=== PATIENT | male | born 1985 | race African-American/Black ===

== ENCOUNTER 2019-09-26 16:31 | Emergency (ER) | payer SELFPAY ==
[~2019-09-26] VITALS: Ht 180 cm; Wt 90.0 kg
--- NOTE | 2019-09-26 17:52 | ED Integumentary General ---
General Chief Complaint: Skin/Wound Problems Stated Complaint: BUMP ON CHIN Nursing Triage Note: THE PT IS AMBULATORY TO THE ROOM WITHOUT DIFFICULTY. NO DISTRESS IS SEEN ON ARRIVAL. LOC IS NORMAL FOR THE PT. THE PT HAS AN ABSCESS ON HIS LOWER JAW. Source: patient Exam Limitations: no limitations (SANDY BUSH MD) History of Present Illness Date Seen by Provider: Sep 26, 2019 Time Seen by Provider: 17:41 Initial Comments Here with report of infected ingrown hair to the left side of the face at the jawline. He gets these sometimes and usually he can get it to pop and it goes away. This time he couldn't get it to pop and he tried squeezing it and it didn't work. Now has grown and is somewhat painful. Denies other concerns. Timing/Duration: week, getting worse Severity: moderate Location: face Possible Cause: other (infected ingrown hair) Associated Symptoms: No fever, No rash (SANDY BUSH MD) Allergies and Home Medications Allergies Coded Allergies: No Known Drug Allergies (Unverified , 12/30/13) Home Medications Sulfamethoxazole/Trimethoprim 1 Each Tablet, 1 EACH PO BID Prescribed by: SANDY BUSH on 09/26/19 1806 Patient Home Medication List Home Medication List Reviewed: Yes (SANDY BUSH MD) Review of Systems Review of Systems Constitutional: see HPI; No chills, No fever Respiratory: no symptoms reported Cardiovascular: no symptoms reported Skin: see HPI, change in color, lesions, lumps Psychiatric/Neurological: No Symptoms Reported (SANDY BUSH MD) Past Unxfczz-Igtblw-Jwtmdv Hx Past Med/Social Hx: Reviewed Nursing Past Med/Soc Hx (SANDY BUSH MD) Patient Social History Alcohol Use: Denies Use Recreational Drug Use: Yes Drug of Choice: marijuana Smoking Status: Current Everyday Smoker Recent Foreign Travel: No Contact w/Someone Who Travel: No Recent Infectious Disease Expo: No (SANDY BUSH MD) Immunizations Up To Date Tetanus Booster (TDap): Unknown (SANDY BUSH MD) Past Medical History Surgeries: No Cardiac: No Neurological: No Reproductive Disorders: No Sexually Transmitted Disease: No HIV/AIDS: No Gastrointestinal: No Musculoskeletal: No Endocrine: No Cancer: No Psychosocial: Yes Bipolar Integumentary: No Blood Disorders: No (SANDY BUSH MD) Physical Exam Vital Signs Vital Signs - First Documented 09/26/19 16:41 Temp 37.1 Pulse 112 Resp 16 (TEREZA TRAN) Vital Signs Capillary Refill : Less Than 3 Seconds (SANDY BUSH MD) General Appearance: WD/WN, no apparent distress Cardiovascular: regular rate, rhythm, no murmur Respiratory: lungs clear, normal breath sounds Neurologic/Psychiatric: alert, oriented x 3 Skin: warm/dry Skin Problem Location: face (left lower jawline anterior) Skin Problem Character: abscess (to a 2 cm with fluctuance and some surrounding induration), erythema (SANDY BUSH MD) Procedures/Interventions I&D : Site: left jaw Blade Size: 11 I & D Procedure: betadine prep, sterile drapes applied, sterile dressing applied, gauze wick placed (one quarter-inch plain packing used to place a small wick in the incision site) Progress Thick, off-white drainage noted from the wound (TEREZA TRAN) Progress/Results/Core Measures Results/Orders My Orders Orders - TEREZA TRAN Sulfamethoxazole/Trimet Ds Tab (Bactrim (09/26/19 18:00) Lidocaine/Epi 2% 1:100,000 (Xylocaine/Ep (09/26/19 18:00) (TEREZA TRAN) Medications Given in ED Current Medications Medications Dose Ordered Sig/Kolby Route Start Time Stop Time Status Last Admin Dose Admin Lidocaine/ Epinephrine 20 ml ONCE ONCE INJ 09/26/19 18:00 09/26/19 18:01 DC 09/26/19 18:12 20 ML Trimethoprim/ Sulfamethoxazole 1 ea ONCE ONCE PO 09/26/19 18:00 09/26/19 18:01 DC 09/26/19 18:12 1 EA (TEREZA TRAN) Vital Signs/I&O 09/26/19 16:41 Temp 37.1 Pulse 112 Resp 16 B/P (MAP) (TEREZA TRAN) Progress Progress Note : Progress Note Seen and evaluated. Requires I&D. I&D to be performed by ATA Gutierrez. Discharged home after with return precautions. Patient and family verbalize understanding instructions and agreement with plan. Bactrim DS one tab by mouth ordered and given. (SANDY BUSH MD) Departure Impression Primary Impression: Facial abscess Disposition: HOME, SELF-CARE Condition: Improved Departure-Patient Inst. Decision time for Depature: 18:05 (SANDY BUSH MD) Referrals: NO,LOCAL PHYSICIAN (PCP/Family) Primary Care Physician Patient Instructions: Abscess Incision and Drainage (DC) Add. Discharge Instructions: All discharge instructions reviewed with patient and/or family. Voiced understanding. Medications as instructed. Tylenol extra strength fggs-glz-[id number] as directed for pain. Ibuprofen 800 mg by mouth every 8 hours as needed for pain. Tomorrow morning you may remove the wick and shower with antibacterial soap. Cover with a Band-Aid or a small piece of gauze. Follow-up with your family practitioner for recheck as outpatient this week. Call Saturday morning for appointment time. You may use ice packs or warm compresses as needed for pain and swelling. Return to the emergency department for worsened symptoms, redness, fever, drainage, swelling, or any other concerns. Scripts Sulfamethoxazole/Trimethoprim (Bactrim Ds Tablet) 1 Each Tablet 1 EACH PO BID, #14 TAB 0 Refills Prov: SANDY BUSH MD 09/26/19 SANDY BUSH MD Sep 26, 2019 17:52 TEREZA TRAN Sep 26, 2019 18:51
[2019-09-26] MEDS ORDERED: TRIM/SULFAMETH 160/800 (SEPTRA DS) TAB PO ONE (18:00)
[2019-09-26] MEDS ORDERED: LIDOCAINE/EPI 2% 1:100,00 (XYLOCAINE) 20 ML VIAL INJ ONE (18:00)
[2019-09-26] MEDS ORDERED: SULF1TAB35 PO (18:06)
[2019-09-26 19:00] VITALS: BP 133/86
--- OUTSIDE RECORDS SUMMARY | 2019-09-30 02:35 | XMS REPORT | Continuity of Care Document ---
Author Organization Unknown Address Unknown Phone Unavailable Allergies Active Description Code Type Severity Reaction Onset Reported/Identified Relationship to Patient Clinical Status Yes No Known Drug Allergies [id number] Drug Allergy Unknown N/A 12/30/2013 Medications There is no data. Problems There is no data. Procedures There is no data. Results Test Result Range Gram stain microscopy - 09/26/19 18:53 Gram stain microscopy NO BACTERIA SEEN NRG Encounters ACCT No. Visit Date/Time Discharge Status Pt. Type Provider Facility Loc./Unit Complaint [id number] 09/26/2019 16:32:00 020 19:00:00 DIS Emergency TEREZA TOLENTINO [facility] ER BUMP ON CHIN [id number] 12/30/2013 10:36:00 014 11:16:00 DIS Emergency
== END 2019-09-26 19:00 | disposition home or self-care (01) ==
LOC: EDUNIT# 16:31 → ER 16:32
DX: L02.01 Cutaneous abscess of face (principal); F17.200 Nicotine dependence, unspecified, uncomplicated
CPT/HCPCS: 87070; 87205; 99284

== ENCOUNTER 2020-02-19 03:00 | Emergency (ER) | payer SELFPAY ==
[~2020-02-19] VITALS: Ht 170 cm; Wt 65.7 kg
[~2020-02-19 03:00] MED LIST: SULF1TAB35 PO
--- OUTSIDE RECORDS SUMMARY | 2020-02-19 03:06 | XMS REPORT | Continuity of Care Document ---
Author Organization Unknown Address Unknown Phone Unavailable Allergies Active Description Code Type Severity Reaction Onset Reported/Identified Relationship to Patient Clinical Status Yes No Known Drug Allergies [id number] Drug Allergy Unknown N/A 12/30/2013 Medications There is no data. Problems There is no data. Procedures There is no data. Results Test Result Range Gram stain microscopy - 09/26/19 18:53 Gram stain microscopy NO BACTERIA SEEN NRG Bacteria identification in wound by cult ure - 09/26/19 18:53 Bacteria identification in wound by culture GRAM P OS M NRG FREE TEXT EXTERNAL NO BETA STREP, STAPH AUREUS, OR NRG QUANTITY OF GROWTH Rare NRG FREE TEXT ENTRY 2 PSEUDOMONAS ISOLATED NRG FREE TEXT ENTRY 3 NO FURTHER TESTING NR G Encounters ACCT No. Visit Date/Time Discharge Status Pt. Type Provider Facility Loc./Unit Complaint [id number] 09/26/2019 16:32:00 020 19:00:00 DIS Emergency TEREZA TOLENTINO [facility] ER BUMP ON CHIN [id number] 12/30/2013 10:36:00 014 11:16:00 DIS Emergency
[2020-02-19 03:17] LABS: BASOPHILS % (AUTO) 0 % (0-10); EOSINOPHILS # (AUTO) 0.2 10^3/uL (0.0-0.3); EOSINOPHILS % (AUTO) 2 % (0-10); HEMATOCRIT 46 % (40-54); LYMPHOCYTES # (AUTO) 2.3 X 10^3 (1.0-4.0); LYMPHOCYTES % (AUTO) 17 % (12-44); MEAN CORPUSCULAR HEMOGLOBIN 33 PG (25-34); MEAN CORPUSCULAR HGB CONC 35 G/DL (32-36); MEAN CORPUSCULAR VOLUME 96 FL (80-99); MEAN PLATELET VOLUME 8.7 FL (7.4-10.4); MONOCYTES # (AUTO) 0.8 X 10^3 (0.0-1.0); MONOCYTES % (AUTO) 6 % (0-12); NEUTROPHILS # (AUTO) 10.1 X 10^3 (1.8-7.8); NEUTROPHILS % (AUTO) 76 % (42-75); PLATELET COUNT 368 10^3/uL (130-400); WHITE BLOOD COUNT 13.4 10^3/uL (4.3-11.0)
[2020-02-19 03:21] LABS: CLARITY,URINE CLEAR; COLOR,URINE DARK YELLOW; GLUCOSE, URINE (UA) NEGATIVE (NEGATIVE); KETONES,URINE TRACE (NEGATIVE); LEUKOCYTE ESTERASE ,URINE NEGATIVE (NEGATIVE); NITRITE,URINE NEGATIVE (NEGATIVE); PH,URINE 5.5 (5-9); PROTEIN,URINE 1+ (NEGATIVE)
[2020-02-19 03:28] LABS: ALBUMIN 4.6 GM/DL (3.2-4.5); CHLORIDE 103 MMOL/L (98-107); POTASSIUM 3.8 MMOL/L (3.6-5.0); SODIUM 140 MMOL/L (135-145)
[2020-02-19 03:30] LABS: CALCIUM 9.6 MG/DL (8.5-10.1)
[2020-02-19 03:31] LABS: GLUCOSE 129 MG/DL (70-105); TOTAL PROTEIN 7.8 GM/DL (6.4-8.2)
[2020-02-19 03:32] LABS: BACTERIA,URINE MODERATE /HPF; CARBON DIOXIDE 25 MMOL/L (21-32); RBC,URINE RARE /HPF; SQUAMOUS EPITHELIAL CELL,UR RARE /HPF; WBC,URINE 0-2 /HPF
[2020-02-19 03:33] LABS: BILIRUBIN,TOTAL 0.7 MG/DL (0.1-1.0); BILIRUBIN,URINE NEGATIVE (NEGATIVE)
[2020-02-19 03:34] LABS: AMPHETAMINE SCREEN, URINE NEGATIVE (NEGATIVE); BARBITURATE SCREEN URINE NEGATIVE (NEGATIVE); BENZODIAZEPINES SCREEN URINE NEGATIVE (NEGATIVE); CANNABINOID SCREEN, URINE POSITIVE (NEGATIVE); COCAINE SCREEN URINE POSITIVE (NEGATIVE); METHADONE STAT NEGATIVE (NEGATIVE); METHAMPHETAMINE SCREEN URINE S POSITIVE (NEGATIVE); OPIATE SCREEN URINE NEGATIVE (NEGATIVE); OXYCODONE STAT NEGATIVE (NEGATIVE); PROPOXYPHENE STAT NEGATIVE (NEGATIVE); TRICYCLIC ANTIDEPRESSANTS SCRE NEGATIVE (NEGATIVE)
[2020-02-19 03:35] LABS: ALKALINE PHOSPHATASE 71 U/L (40-136); CREATININE SERUM 1.05 MG/DL (0.60-1.30); GFR ESTIMATED > 60
[2020-02-19 03:36] LABS: ACETAMINOPHEN 34 UG/ML (10-30); BUN/CREATININE RATIO 6
[2020-02-19 03:37] LABS: SALICYLATE < 5.0 MG/DL (5.0-20.0)
[2020-02-19 03:38] LABS: ALANINE AMINOTRANSFERASE 15 U/L (0-55)
[2020-02-19] MEDS ORDERED: lamoTRIgine 25 MG (LaMICtal) TAB PO ONE (04:30)
[2020-02-19] MEDS ORDERED: LAMO25TA75 PO (04:46)
--- NOTE | 2020-02-19 04:46 | ED Psychosocial ---
General Chief Complaint: Suicidal Ideation Risk Stated Complaint: SUICIDAL Nursing Triage Note: pt presents to the ED with thoughts of SI. pt states he recently lost his job and is having SI thoughts. pt recently relocated to the area and has not established mental health care. pt has hx of bipolar. plan to comit suicide was to overdose on cocain and tylenol Source: patient, old records Exam Limitations: no limitations History of Present Illness Date Seen by Provider: Feb 19, 2020 Time Seen by Provider: 03:02 Initial Comments This 34-year-old young man presents to the emergency room with complaints of intermittent suicidal thoughts. He recently lost his job and moved to the [facility]. He had been receiving behavioral health services in [place], [place] for bipolar disorder and schizophrenia. He was previously on Lamictal but has been out of his medications for a couple of months. He has been using multiple illicit substances extensively. He reports snorting a large amount of cocaine yesterday. He reports taking 7 or 8 Tylenol within the past 24 hours but no prescription medications. His prior behavioral health provider was Merry Tovar in [place] and she prescribed his medication. He needs to establish with a behavioral health services here. He reports battling with mental health issues since he was 13 and he has been admitted to inpatient facilities multiple times. He states he really needs someone to talk to but does not specifically feel suicidal at this moment. He reports hallucinations yesterday but not today. Allergies and Home Medications Allergies Coded Allergies: No Known Drug Allergies (Unverified , 12/30/13) Home Medications Lamotrigine 25 Mg Tablet, 25 MG PO DAILY Prescribed by: MAKSIM DIAMOND on 02/19/20 3286 Sulfamethoxazole/Trimethoprim 1 Each Tablet, 1 EACH PO BID Prescribed by: SANDY BUSH on 09/26/19 0605 Patient Home Medication List Home Medication List Reviewed: Yes Review of Systems Constitutional: no symptoms reported EENTM: no symptoms reported Respiratory: no symptoms reported Cardiovascular: no symptoms reported Gastrointestinal: no symptoms reported Genitourinary: no symptoms reported Musculoskeletal: no symptoms reported Skin: no symptoms reported Psychiatric/Neurological: See HPI Past Scnslac-Bpjygy-Hvtbqb Hx Past Med/Social Hx: Reviewed Nursing Past Med/Soc Hx Patient Social History Alcohol Use: Occasionally Uses Number of Drinks Today: 0 Recreational Drug Use: Yes (cocaine, marijuana) Drug of Choice: cocaine and marijuana Smoking Status: Current Everyday Smoker Type Used: Cigarettes 2nd Hand Smoke Exposure: Yes Recent Infectious Disease Expo: No Recent Hopitalizations: No Physical Abuse: No Sexual Abuse: No Mistreated: No Fear: No Immunizations Up To Date Tetanus Booster (TDap): Unknown Seasonal Allergies Seasonal Allergies: No Past Medical History Surgeries: Yes Abdominal Respiratory: No Cardiac: No Neurological: No Reproductive Disorders: No Sexually Transmitted Disease: No HIV/AIDS: No Genitourinary: No Gastrointestinal: No Musculoskeletal: No Endocrine: No HEENT: No Cancer: No Psychosocial: Yes Bipolar, Schizophrenia Integumentary: No Blood Disorders: No Adverse Reaction/Blood Tranf: No Physical Exam Vital Signs - First Documented 02/19/20 02/19/20 03:00 04:53 Temp 36.7 Pulse 90 Resp 18 B/P (MAP) 136/101 (113) Pulse Ox 98 O2 Delivery Room Air Capillary Refill : Less Than 3 Seconds Height, Weight, BMI Height: 5'6" Weight: 145lbs. oz. 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, no motor/sensory deficits, alert, normal mood/affect, oriented x 3 Appearance/Memory: appropriate appearance, appropriate insight Behavior/Eye Contact: cooperative, good eye contact, normal speech Thoughts/Hallucinations: no apparent hallucination Skin: normal color, warm/dry Progress/Results/Core Measures Results/Orders Lab Results Laboratory Tests Test 02/19/20 03:05 Range/Units White Blood Count 13.4 H 4.3-11.0 10^3/uL Red Blood Count 4.79 4.35-5.85 10^6/uL Hemoglobin 16.0 13.3-17.7 G/DL Hematocrit 46 40-54 % Mean Corpuscular Volume 96 80-99 FL Mean Corpuscular Hemoglobin 33 25-34 PG Mean Corpuscular Hemoglobin Concent 35 32-36 G/DL Red Cell Distribution Width 13.0 10.0-14.5 % Platelet Count 368 130-400 10^3/uL Mean Platelet Volume 8.7 7.4-10.4 FL Neutrophils (%) (Auto) 76 H 42-75 % Lymphocytes (%) (Auto) 17 12-44 % Monocytes (%) (Auto) 6 0-12 % Eosinophils (%) (Auto) 2 0-10 % Basophils (%) (Auto) 0 0-10 % Neutrophils # (Auto) 10.1 H 1.8-7.8 X 10^3 Lymphocytes # (Auto) 2.3 1.0-4.0 X 10^3 Monocytes # (Auto) 0.8 0.0-1.0 X 10^3 Eosinophils # (Auto) 0.2 0.0-0.3 10^3/uL Basophils # (Auto) 0.0 0.0-0.1 10^3/uL Urine Color DARK YELLOW Urine Clarity CLEAR Urine pH 5.5 5-9 Urine Specific [place] 1.025 H 1.016-1.022 Urine Protein 1+ H NEGATIVE Urine Glucose (UA) NEGATIVE NEGATIVE Urine Ketones TRACE H NEGATIVE Urine Nitrite NEGATIVE NEGATIVE Urine Bilirubin NEGATIVE NEGATIVE Urine Urobilinogen 1.0 < = 1.0 MG/DL Urine Leukocyte Esterase NEGATIVE NEGATIVE Urine RBC (Auto) TRACE-I NEGATIVE Urine RBC RARE /HPF Urine WBC 0-2 /HPF Urine Squamous Epithelial Cells RARE /HPF Urine Crystals NONE /LPF Urine Bacteria MODERATE H /HPF Urine Casts NONE /LPF Urine Mucus MODERATE H /LPF Urine Culture Indicated YES Sodium Level 140 135-145 MMOL/L Potassium Level 3.8 3.6-5.0 MMOL/L Chloride Level 103 98-107 MMOL/L Carbon Dioxide Level 25 21-32 MMOL/L Anion Gap 12 5-14 MMOL/L Blood Urea Nitrogen 6 L 7-18 MG/DL Creatinine 1.05 0.60-1.30 MG/DL Estimat Glomerular Filtration Rate > 60 BUN/Creatinine Ratio 6 Glucose Level 129 H 70-105 MG/DL Calcium Level 9.6 8.5-10.1 MG/DL Corrected Calcium 8.5-10.1 MG/DL Total Bilirubin 0.7 0.1-1.0 MG/DL Aspartate Amino Transf (AST/SGOT) 19 5-34 U/L Alanine Aminotransferase (ALT/SGPT) 15 0-55 U/L Alkaline Phosphatase 71 40-136 U/L Total Protein 7.8 6.4-8.2 GM/DL Albumin 4.6 H 3.2-4.5 GM/DL TSH [place] Testing 1.07 0.35-4.94 UIU/ML Salicylates Level < 5.0 L 5.0-20.0 MG/DL Urine Opiates Screen NEGATIVE NEGATIVE Urine Oxycodone Screen NEGATIVE NEGATIVE Urine Methadone Screen NEGATIVE NEGATIVE Urine Propoxyphene Screen NEGATIVE NEGATIVE Acetaminophen Level 34 H 10-30 UG/ML Urine Barbiturates Screen NEGATIVE NEGATIVE Ur Tricyclic Antidepressants Screen NEGATIVE NEGATIVE Urine Phencyclidine Screen POSITIVE H NEGATIVE Urine Amphetamines Screen NEGATIVE NEGATIVE Urine Methamphetamines Screen POSITIVE H NEGATIVE Urine Benzodiazepines Screen NEGATIVE NEGATIVE Urine Cocaine Screen POSITIVE H NEGATIVE Urine Cannabinoids Screen POSITIVE H NEGATIVE Serum Alcohol < 10 <10 MG/DL My Orders Orders - MAKSIM PAUL MD Ua Culture If Indicated (02/19/20 03:07) Cbc With Automated Diff (02/19/20 03:07) Comprehensive Metabolic Panel (02/19/20 03:07) Alcohol (02/19/20 03:07) Drug Screen Stat (Urine) (02/19/20 03:07) Acetaminophen (02/19/20 03:07) Salicylate (02/19/20 03:07) Ekg Tracing (02/19/20 03:07) Ed Iv/Invasive Line Start (02/19/20 03:07) Thyroid Analyzer (02/19/20 03:07) Monitor-Rhythm Ecg Trace Only (02/19/20 03:07) Bh Status Checks/Observation Q15M (02/19/20 03:07) Ed Iv/Invasive Line Start (02/19/20 03:07) Urine Culture (02/19/20 03:05) Lamotrigine Tablet (Lamictal Tablet) (02/19/20 04:30) Vital Signs/I&O 02/19/20 02/19/20 03:00 04:53 Temp 36.7 36.9 Pulse 90 101 Resp 18 20 B/P (MAP) 136/101 (113) 139/101 Pulse Ox 98 O2 Delivery Room Air Room Air Blood Pressure Mean: 113 Progress Progress Note : Progress Note Labs were reviewed. Vital signs are stable. Patient verbally contracts for safety at this time and commits to calling the hotline or emergency services if suicidal thoughts return. Case was reviewed with the on-call service for [facility] who will refer him for intake promptly in the morning. Patient was given a dose of Lamictal in the ER and a two-week prescription for low-dose Lamictal to get him started. Patient reports having a safe place to stay tonight. He departed for home via taxi. Departure Impression Primary Impression: Suicidal ideation Additional Impressions: Schizophrenia Qualified Codes: F20.9 - Schizophrenia, unspecified Polysubstance abuse Disposition: HOME, SELF-CARE Condition: Improved Departure-Patient Inst. Decision time for Depature: 04:30 Referrals: NO,LOCAL PHYSICIAN (PCP/Family) Primary Care Physician Patient Instructions: OUTPT MENTAL HEALTH SERVICES, Schizophrenia, Polysubstance Abuse, Suicide Prevention Add. Discharge Instructions: You should receive a call from [facility] later this morning. If you do not hear from them by noon call the SAVE Line at [phone] ([phone]). You may also call the SAVE Line if you have escalating symptoms in the meantime. Alternatively you may call 911 or return to the emergency room. Start Lamictal as prescribed. Follow-up with a primary care medical provider soon as possible. Avoid use of illicit substances such as marijuana, cocaine, methamphetamines, etc. as this may worsen symptoms of schizophrenia. All discharge instructions reviewed with patient and/or family. Voiced understan armando. Scripts Lamotrigine (Lamictal) 25 Mg Tablet 25 MG PO DAILY, #14 TAB Prov: MAKSIM PAUL MD 02/19/20 MAKSIM PAUL MD Feb 19, 2020 04:46
[2020-02-19 04:53] VITALS: BP 139/101
== END 2020-02-19 04:54 | disposition home or self-care (01) ==
LOC: EDUNIT# 03:00 → ER 03:02
DX: R45.851 Suicidal ideations (principal); F20.9 Schizophrenia, unspecified; F14.10 Cocaine abuse, uncomplicated; F12.10 Cannabis abuse, uncomplicated; F31.9 Bipolar disorder, unspecified; F17.210 Nicotine dependence, cigarettes, uncomplicated; Z91.14 Patient's other noncompliance with medication regimen
CPT/HCPCS: 80053; 80306; 81000; 84443; 85025; 87088; 93005; 99284; G0480 ×3; 36415; 80320; 80329

== ENCOUNTER 2020-07-02 06:01 | Emergency (ER) | payer SELFPAY ==
[~2020-07-02] VITALS: Ht 168 cm; Wt 61.4 kg
[~2020-07-02 06:01] MED LIST changes: +LAMO25TA75 PO
[2020-07-02 06:05] VITALS: BP 151/117
--- NOTE | 2020-07-02 06:05 | NUR ---
pt refused covid/flu swabs.
--- NOTE | 2020-07-02 06:23 | ED Cough/URI ---
General Chief Complaint: Cough/Cold/Flu Symptoms Stated Complaint: DEMPSEY,COUGH Source: patient, EMS Exam Limitations: no limitations History of Present Illness Date Seen by Provider: Jul 02, 2020 Time Seen by Provider: 06:05 Initial Comments Patient presents to the ER by EMS from home with chief complaint he has 2 weeks of headache cough runny nose congestion and sometimes some flecks of blood when he blows his nose. He has not had any actual epistaxis. He is having a little pressure on both ears but no pain. Some pain in his frontal sinuses bilaterally in his right maxillary sinus. He has not seen anybody for it. He does usually take Lamictal for his bipolar and schizoaffective disorder but he says he been o ut for a while. He says his primary care doctor is in [facility]. He smokes about a pack cigarettes a day denies any fevers source known sick contacts. He denies any testing for flu or Covid. Allergies and Home Medications Allergies Coded Allergies: No Known Drug Allergies (Unverified , 12/30/13) Home Medications Lamotrigine 25 Mg Tablet, 25 MG PO DAILY Prescribed by: MAKSIM DIAMOND on 02/19/20 0446 Sulfamethoxazole/Trimethoprim 1 Each Tablet, 1 EACH PO BID Prescribed by: SANDY BUSH on 09/26/19 1806 Patient Home Medication List Home Medication List Reviewed: Yes Review of Systems Review of Systems Constitutional: No chills, No diaphoresis, No fever; malaise EENTM: No ear discharge, No ear pain Respiratory: cough; No phlegm, No short of breath Cardiovascular: No edema, No Hx of Intervention, No palpitations Gastrointestinal: No abdominal pain, No nausea, No vomiting Genitourinary: No discharge, No dysuria Musculoskeletal: No back pain, No joint pain All Other Systems Reviewed Negative Unless Noted: Yes Past Pcpwxig-Acgeqx-Citldy Hx Patient Social History Alcohol Use: Occasionally Uses Recreational Drug Use: Yes Drug of Choice: cocaine and marijuana Smoking Status: Current Everyday Smoker Type Used: Cigarettes 2nd Hand Smoke Exposure: Yes Recent Hopitalizations: No Immunizations Up To Date Tetanus Booster (TDap): Unknown Seasonal Allergies Seasonal Allergies: No Past Medical History Surgeries: Yes Abdominal Respiratory: No Cardiac: No Neurological: No Reproductive Disorders: No Sexually Transmitted Disease: No HIV/AIDS: No Genitourinary: No Gastrointestinal: No Musculoskeletal: No Endocrine: No HEENT: No Cancer: No Psychosocial: Yes Bipolar, Schizophrenia Integumentary: No Blood Disorders: No Adverse Reaction/Blood Tranf: No Physical Exam Vital Signs - First Documented 07/02/20 06:05 O2 Delivery Room Air Capillary Refill : Height: 5'6" Weight: 145lbs. oz. 65.546874is; 22.00 BMI Method:Stated General Appearance: WD/WN, mild distress Eyes: Bilateral Eye Normal Inspection, Bilateral Eye PERRL, Bilateral Eye EOMI HEENT: PERRL/EOMI, pharynx normal, TM abnormal (R) (Moderately injected and opaque nonbulging), TM abnormal (L) (Moderately injected and opaque.), pharyngeal erythema, other (Clear rhinorrhea and tenderness over the right maxillary and bilateral frontal sinuses) Neck: full range of motion, supple, normal inspection Respiratory: lungs clear, normal breath sounds, no respiratory distress, no accessory muscle use Cardiovascular: normal peripheral pulses, regular rate, rhythm Neurologic/Psychiatric: alert, normal mood/affect, oriented x 3 Skin: normal color, warm/dry Progress/Results/Core Measures Suspected Sepsis SIRS Temperature: Pulse: Respiratory Rate: Blood Pressure / Mean: Results/Orders Vital Signs/I&O 07/02/20 06:05 O2 Delivery Room Air Capillary Refill : Progress Note : Time: 06:20 Progress Note Suspect he has a viral URI and possibly the start of a bronchitis with an occasional cough versus postnasal drip. His lungs are clear and his vital signs are aseptic. We did offer to do Covid and influenza swabs. He declined influenza swab. He was unable to completely participate with a Covid swab. Since his been going on for over 2 weeks it would be very reasonable to put him on Augmentin for 10 days and give him some cough medicine. We also recommended several decongestants that would help with his headache and nasal symptoms. Departure Impression Primary Impression: Upper respiratory infection Qualified Codes: J06.9 - Acute upper respiratory infection, unspecified Additional Impressions: Cough Sinusitis, acute maxillary Qualified Codes: J01.00 - Acute maxillary sinusitis, unspecified Disposition: 01 HOME, SELF-CARE Condition: Stable Departure-Patient Inst. Decision time for Depature: 06:20 Referrals: NO,LOCAL PHYSICIAN (PCP/Family) Primary Care Physician Patient Instructions: Sinusitis in Adults, Cough, Runny Nose, and the Common Cold (DC) Add. Discharge Instructions: Stay quarantined at home, wash your hands and wear a mask until you are 72 hours symptoms free. Use Tylenol 1000 mg every 8 hours as necessary for headache. Ibuprofen 800 mg every 8 hours as necessary for headache, body aches and fever. Drink lots of fluids. Tessalon Perles 1 capsule every 6 hours as necessary for cough. Augmentin 1 tablet twice a day with food for the next 10 days. Expect improvement over the next 3 to 5 days. If you are not seeing improvement in symptoms you can follow-up with an urgent care. If you are having difficulty breathing or worsening other symptoms you may return to the ER. Use a decongestant for your nose such as chlorpheniramine 1 tablet every 4 hours as necessary or Sudafed All discharge instructions reviewed with patient and/or family. Voiced understanding. Scripts Benzonatate (Tessalon Perle) 100 Mg Capsule 100 MG PO Q6H PRN for COUGH, #30 CAP 0 Refills Prov: KEM ONEIL 07/02/20 Amoxicillin/Potassium Clav (Augmentin 875-125 Tablet) 1 Each Tablet 1 EACH PO BID for 10 Days, #20 TAB 0 Refills Prov: KEM ONEIL 07/02/20 KEM ONEIL Jul 02, 2020 06:23
[2020-07-02] MEDS ORDERED: BENZ-13 PO (06:26)
[2020-07-02] MEDS ORDERED: AMOX-358 PO (06:26)
== END 2020-07-02 06:28 | disposition home or self-care (01) ==
LOC: EDUNIT# 06:01 → ER 06:03
DX: J06.9 Acute upper respiratory infection, unspecified (principal); R05 Cough; J01.00 Acute maxillary sinusitis, unspecified; F31.9 Bipolar disorder, unspecified; F17.210 Nicotine dependence, cigarettes, uncomplicated
CPT/HCPCS: 99283

== ENCOUNTER 2021-04-14 15:21 | Emergency (ER) | payer SELFPAY ==
[~2021-04-14] VITALS: Ht 175.2 cm; Wt 65.0 kg
[~2021-04-14 15:21] MED LIST changes: +AMOX-358 PO; +BENZ-13 PO; -SULF1TAB35 PO; +SULF1TAB38 PO
[2021-04-14] MEDS ORDERED: LORazepam INJ 2 MG/ML (ATIVAN) VIAL IVP ONE (15:45)
[2021-04-14 15:47] LABS: BASOPHILS % (AUTO) 0 % (0-10); EOSINOPHILS # (AUTO) 0.2 10^3/uL (0.0-0.3); EOSINOPHILS % (AUTO) 2 % (0-10); HEMATOCRIT 45 % (40-54); HEMOGLOBIN 15.1 g/dL (13.3-17.7); LYMPHOCYTES # (AUTO) 3.7 X 10^3 (1.0-4.0); LYMPHOCYTES % (AUTO) 41 % (12-44); MEAN CORPUSCULAR HEMOGLOBIN 33 pg (25-34); MEAN CORPUSCULAR HGB CONC 33 g/dL (32-36); MEAN CORPUSCULAR VOLUME 99 fL (80-99); MEAN PLATELET VOLUME 8.8 fL (9.0-12.2); MONOCYTES % (AUTO) 11 % (0-12); NEUTROPHILS % (AUTO) 45 % (42-75); PLATELET COUNT 354 10^3/uL (130-400)
[2021-04-14 15:51] VITALS: BP_SYST 102; BP_SYST 105; BP_SYST 91; BP_DIAS 57; BP_DIAS 65; BP_DIAS 72
[2021-04-14 15:52] LABS: POTASSIUM 4.3 MMOL/L (3.6-5.0)
[2021-04-14 15:53] LABS: CALCIUM 9.8 MG/DL (8.5-10.1)
[2021-04-14 15:57] LABS: CREATININE SERUM 1.47 MG/DL (0.60-1.30)
[2021-04-14 16:00] LABS: MAGNESIUM 2.2 MG/DL (1.6-2.4)
[2021-04-14] MEDS ORDERED: LACTATED RINGERS 1,000 ML IV ONE (16:00)
--- NOTE | 2021-04-14 16:00 | ED Syncope ---
General Chief Complaint: Dizziness/Syncope Stated Complaint: SEIZURE/SYNCOPE/HIT BACK OF HEAD Nursing Triage Note: Pt arrival to ER via wheelchair with complaint of Syncope x2 today, Chest Pain x20 minutes. [employer] patient had syncopal episode in parking lot of [facility]. states that he fell striking back of head on parking lot. She states that he quickly came to, and was able to get into car and come to ER. Once inside waiting area of hosptial, patient had witnessed syncopal episode by staff. Pt was completely unresponsive for about 15 seconds. No periods of apnea, pulselessness. Pt awakens and immediately is alert and oriented x4. Pt admits to cocaine use all day yesterday, and states that he uses it very regularly. Pt also complains of neck pain since fall, so c-collar is applied. Pain rated at a 8/10. Source of Information: Patient Exam Limitations: No Limitations History of Present Illness Date Seen by Provider: Apr 14, 2021 Time Seen by Provider: 15:25 Initial Comments 36-year-old male with past medical history of schizophrenia and bipolar disorder coming in due to an episode of syncope. The patient states he was snorting cocaine most of yesterday. He was at [facility] just prior to arrival, felt lightheaded, asked to sit down, and apparently had a syncopal episode hitting the back of his head. Was then driving here and had another syncopal episode in the parking lot witnessed by our staff. No seizure-like activity and was not postictal afterwards per staff. Afterwards came to, acting normally, ambulating. Has mild posterior head and neck pain. Denies any weakness or numbness. Says he is having some chest pain that started after the syncopal episode at [facility]. No pain prior, no palpitations. He has had a syncopal episode a couple years ago, and at that time was not using cocaine. Denies any family history of early cardiac . Is otherwise denying any other acute complaints including shortness of breath, fever, nausea, vomiting, vision changes, weakness, numbness, abdominal pain, diarrhea, or any other concerns. Allergies and Home Medications Allergies Coded Allergies: No Known Drug Allergies (Unverified , 12/30/13) Patient Home Medication List Home Medication List Reviewed: Yes Amoxicillin/Potassium Clav (Augmentin 875-125 Tablet) 1 Each Tablet, 1 EACH PO BID Prescribed by: KEM ONEIL on 07/02/20 06 Benzonatate (Tessalon Perle) 100 Mg Capsule, 100 MG PO Q6H PRN for COUGH Prescribed by: EKM ONEIL on 07/02/20625 Lamotrigine (Lamictal) 25 Mg Tablet, 25 MG PO DAILY Prescribed by: MAKSIM DIAMOND on 02/19/20 0446 Sulfamethoxazole/Trimethoprim (Bactrim Ds Tablet) 1 Each Tablet, 1 EACH PO BID Prescribed by: SANDY BUSH on 09/26/19 180 Review of Systems Constitutional: No fever EENTM: No hearing loss, No blurred vision, No double vision Respiratory: No cough, No short of breath Cardiovascular: chest pain; No edema, No palpitations; syncope Gastrointestinal: No abdominal pain, No diarrhea, No nausea, No vomiting Genitourinary: No dysuria, No frequency Musculoskeletal: No back pain, No joint pain Skin: No rash Psychiatric/Neurological: No Symptoms Reported All Other Systems Reviewed Negative Unless Noted: Yes Past Afqdlav-Abhcjj-Bubdgt Hx Patient Social History Tobacco Use?: Yes Tobacco type used: Cigarettes Smoking Status: Current Everyday Smoker Use of E-Cig and/or Vaping dev: No Substance use?: Yes Substance type: Other Additional substance use comme: Cocaine Multiple times a week Substance frequency: Couple times a week Alcohol Use?: Yes Alcohol type: Hard Liquor Alcohol Frequency: Rarely Pt feels they are or have been: No Immunizations Up To Date Tetanus Booster (TDap): Unknown Influenza Vaccine Up-to-Date: No; Not Current Seasonal Allergies Seasonal Allergies: No Past Medical History Surgeries: Yes Abdominal Respiratory: No Cardiac: No Neurological: No Reproductive Disorders: No Sexually Transmitted Disease: No HIV/AIDS: No Genitourinary: No Gastrointestinal: No Musculoskeletal: No Endocrine: No HEENT: No Cancer: No Psychosocial: Yes Bipolar, Schizophrenia Integumentary: No Blood Disorders: No Adverse Reaction/Blood Tranf: No Physical Exam Vital Signs Vital Signs - First Documented 04/14/21 15:21 Temp 36.7 Pulse 75 Resp 16 B/P (MAP) 92/62 (72) Pulse Ox 100 O2 Delivery Room Air Capillary Refill : Less Than 3 Seconds Height, Weight, BMI Height: 5'6" Weight: 145lbs. oz. 65.805879fn; 21.00 BMI Method:Stated General Appearance: No Apparent Distress, WD/WN HEENT: PERRL/EOMI, TMs Normal, Normal ENT Inspection, Pharynx Normal Neck: Full Range of Motion, Normal Inspection, Supple, Other (tender lower cervical spine) Cardiovascular: Regular Rate, Rhythm, No Edema, No Murmur, Normal Peripheral Pulses Respiratory: Chest Non Tender, Lungs Clear, Normal Breath Sounds, No Accessory Muscle Use, No Respiratory Distress Gastrointestinal: Normal Bowel Sounds, Non Tender, Soft; No Distended, No Guarding Back: Normal Inspection, No CVA Tenderness, No Vertebral Tenderness Extremities: Normal Capillary Refill, Normal Inspection, Normal Range of Motion, Non Tender, No Calf Tenderness Neurologic/Psychiatric: Alert, Oriented x3, No Motor/Sensory Deficits, Normal Mood/Affect, transliterator II-XII Norm as Tested Cranial Nerves: Normal Hearing, Normal Speech, PERRL Coordination/Gait: Normal Finger to Nose Motor/Sensory: No Motor Deficit, No Sensory Deficit, No Pronator Drift Skin: Normal Color, Warm/Dry Lymphatic: No Adenopathy Progress/Results/Core Measures Results/Orders Lab Results Laboratory Tests Test 04/14/21 15:30 04/14/21 16:31 04/14/21 17:45 Range/Units White Blood Count 9.0 4.3-11.0 10^3/uL Red Blood Count 4.55 4.30-5.52 10^6/uL Hemoglobin 15.1 13.3-17.7 g/dL Hematocrit 45 40-54 % Mean Corpuscular Volume 99 80-99 fL Mean Corpuscular Hemoglobin 33 25-34 pg Mean Corpuscular Hemoglobin Concent 33 32-36 g/dL Red Cell Distribution Width 14.2 10.0-14.5 % Platelet Count 354 130-400 10^3/uL Mean Platelet Volume 8.8 L 9.0-12.2 fL Immature Granulocyte % (Auto) 0 % Neutrophils (%) (Auto) 45 42-75 % Lymphocytes (%) (Auto) 41 12-44 % Monocytes (%) (Auto) 11 0-12 % Eosinophils (%) (Auto) 2 0-10 % Basophils (%) (Auto) 0 0-10 % Neutrophils # (Auto) 4.0 1.8-7.8 X 10^3 Lymphocytes # (Auto) 3.7 1.0-4.0 X 10^3 Monocytes # (Auto) 1.0 0.0-1.0 X 10^3 Eosinophils # (Auto) 0.2 0.0-0.3 10^3/uL Basophils # (Auto) 0.0 0.0-0.1 10^3/uL Immature Granulocyte # (Auto) 0.0 0.0-0.1 10^3/uL Sodium Level 139 135-145 MMOL/L Potassium Level 4.3 3.6-5.0 MMOL/L Chloride Level 102 98-107 MMOL/L Carbon Dioxide Level 25 21-32 MMOL/L Anion Gap 12 5-14 MMOL/L Blood Urea Nitrogen 13 7-18 MG/DL Creatinine 1.47 H 0.60-1.30 MG/DL Estimat Glomerular Filtration Rate 65 BUN/Creatinine Ratio 9 Glucose Level 46 *L 70-105 MG/DL Calcium Level 9.8 8.5-10.1 MG/DL Magnesium Level 2.2 1.6-2.4 MG/DL Troponin I < 0.028 <0.028 NG/ML Glucometer 81 70-110 MG/DL My Orders Orders - CHRISTINA ROB MD Troponin I (04/14/21 15:32) Chest 1 View, Ap/Pa Only (04/14/21 15:32) Ekg Tracing (04/14/21 15:32) Ed Iv/Invasive Line Start (04/14/21 15:32) Monitor-Rhythm Ecg Trace Only (04/14/21 15:32) Basic Metabolic Panel (04/14/21 15:32) Cbc With Automated Diff (04/14/21 15:32) Magnesium (04/14/21 15:32) Troponin I (04/14/21 17:30) Ct Head/Cervical Spine Wo (04/14/21 15:32) Lorazepam Injection (Ativan Injection) (04/14/21 15:45) Orthostatic Vital Signs (Adult (04/14/21 15:53) Ed Iv/Invasive Line Start (04/14/21 15:53) Lactated Ringers (Lr 1000 Ml Iv Solution (04/14/21 16:00) Medications Given in ED Current Medications Medications Dose Ordered Sig/Kolby Route Start Time Stop Time Status Last Admin Dose Admin Lactated Ringer's 1,000 ml @ 0 mls/hr Q0M ONCE IV 04/14/21 16:00 04/14/21 16:01 DC 04/14/21 16:16 1,000 MLS/HR Lorazepam 1 mg ONCE ONCE IVP 04/14/21 15:45 04/14/21 15:46 DC 04/14/21 15:50 1 MG Vital Signs/I&O 04/14/21 15:21 Temp 36.7 Pulse 75 Resp 16 B/P (MAP) 92/62 (72) Pulse Ox 100 O2 Delivery Room Air Blood Pressure Mean: 72 Progress Progress Note : Progress Note 36-year-old male with above history coming in after a couple syncopal episodes today in the setting of using cocaine all day yesterday. He did have chest pain after the first syncopal episode but not prior to. Did not have any seizure- like activity and no postictal period making seizure very unlikely. On arrival glucose was 46. He was alert and oriented with no neuro deficits GCS of 15. He was given oral supplementation with frequent reassessments and repeat blood sugar. CT head and cervical spine ordered given the syncope hitting his head now with pain. EKG without any concerning findings regarding syncope including no signs of delta wave, normal QTC, no Brugada sign, no ischemic changes, sinus rhythm 69. Initial troponin is negative, repeat troponin is pending at this time. CT head and cervical spine negative for any acute abnormalities. Chest x-ray normal on my interpretation. His syncope is explained by his hypoglycemia. I will recommend that he stop cocaine use. Pending the second troponin being negative he can go home. He will be signed out to the oncoming physician. Initial ECG Impression Date: Apr 14, 2021 Initial ECG Impression Time: 15:22 Initial ECG Rate: 69 Initial ECG Rhythm: Normal Sinus Comment Narrow QRS, left axis deviation, ST elevation more consistent with benign early repol without reciprocal depressions, QTc 412, no delta wave, no brugada sign, no epsilon wave Diagnostic Imaging Diagonstic Imaging: Xray (chest), CT (head) Comments Chest XR normal without acute findings [facility], [place] NAME: LEIF QUICK [facility] REC#: [id number] PT STATUS: REG ER : 1985 PHYSICIAN: CHRISTINA ROB MD ADMIT DATE: 04/14/21/ER Draft Date of Exam:04/14/21 CT HEAD/CERVICAL SPINE WO CLINICAL INDICATION: Patient with two syncopal episodes today. Now seizures. Patient complains of posterior head and neck pain and anterior chest pain in the clavicle area. EXAM: Head CT without IV contrast with sagittal and coronal reformations. Axial CT scan of the cervical spine with sagittal and coronal reformations. Auto Exposure Controls were utilized during the CT exam to meet ALARA standards for radiation dose reduction. COMPARISON: None. FINDINGS: Head CT: There is no evidence of acute cerebral infarct, intracranial hemorrhage, or gross mass effect. The brain parenchymal volume appears appropriate for patient's age. There is normal smiley-white matter distinction. There is no significant midline shift or herniation. There is no evidence of hydrocephalus. The basal cisterns are unremarkable. There is a small area of extracranial soft tissue swelling involving the right forehead region. There is no skull fracture. Skull, extracranial soft tissue, and orbits are unremarkable. There is mild mucosal thickening involving the right maxillary sinus and ethmoid sinus. Temporal bones show no significant abnormality. Cervical spine: There is no acute cervical spine fracture or dislocation. There are posterior disc spurs at the C5-C6 level, which cause mild central canal narrowing. There is no significant neck soft tissue abnormality. Visualized upper lung hill are clear. IMPRESSION: 1: There is no evidence of acute intracranial process. There is no intracranial hemorrhage. 2: There is a small area of extracranial soft tissue swelling involving the right frontal region. There is no skull fracture. 3: Cervical spine degenerative disease with no acute fracture or dislocation. Dictated on workstation # [id number] Dict: 04/14/21 1603 Trans: 04/14/21 1614 [id number] Interpreted by: TRISTAN WANG MD Electronically signed by: Departure Impression Primary Impression: Syncope Qualified Codes: R55 - Syncope and collapse Additional Impression: Hypoglycemia Disposition: 01 HOME, SELF-CARE Condition: Stable Departure-Patient Inst. Decision time for Depature: 18:16 Referrals: NO,LOCAL PHYSICIAN (PCP/Family) Primary Care Physician Patient Instructions: Syncope (Fainting), Low Blood Sugar, Adult ED Add. Discharge Instructions: Your blood sugar was low and that is likely why you passed out. If you continue to pass out, have worsening chest pain, or any other concerns then please come back to the ER. Follow-up with your primary care doctor within the next week. All discharge instructions reviewed with patient and/or family. Voiced understanding. CHRISTINA ROB MD Apr 14, 2021 16:00
--- NOTE | 2021-04-14 16:15 | Diagnostic Imaging Report ---
CLINICAL INDICATION: Patient with two syncopal episodes today. Now seizures. Patient complains of posterior head and neck pain and anterior chest pain in the clavicle area. EXAM: Head CT without IV contrast with sagittal and coronal reformations. Axial CT scan of the cervical spine with sagittal and coronal reformations. Auto Exposure Controls were utilized during the CT exam to meet ALARA standards for radiation dose reduction. COMPARISON: None. FINDINGS: Head CT: There is no evidence of acute cerebral infarct, intracranial hemorrhage, or gross mass effect. The brain parenchymal volume appears appropriate for patient's age. There is normal smiley-white matter distinction. There is no significant midline shift or herniation. There is no evidence of hydrocephalus. The basal cisterns are unremarkable. There is a small area of extracranial soft tissue swelling involving the right forehead region. There is no skull fracture. Skull, extracranial soft tissue, and orbits are unremarkable. There is mild mucosal thickening involving the right maxillary sinus and ethmoid sinus. Temporal bones show no significant abnormality. Cervical spine: There is no acute cervical spine fracture or dislocation. There are posterior disc spurs at the C5-C6 level, which cause mild central canal narrowing. There is no significant neck soft tissue abnormality. Visualized upper lung hill are clear. IMPRESSION: 1: There is no evidence of acute intracranial process. There is no intracranial hemorrhage. 2: There is a small area of extracranial soft tissue swelling involving the right frontal region. There is no skull fracture. 3: Cervical spine degenerative disease with no acute fracture or dislocation. Dictated by: Dictated on workstation # [id number]
--- NOTE | 2021-04-14 16:16 | Diagnostic Imaging Report ---
CLINICAL INDICATION: Patient with chest pain. EXAM: Portable chest x-ray, upright view. COMPARISONS: None. FINDINGS: Lungs/pleura: Lungs are clear. There is no pneumothorax. There is no pleural effusion. Mediastinum: Unremarkable. Pulmonary vasculature: Unremarkable. Heart: Unremarkable. Bones/extrathoracic soft tissue: Unremarkable. IMPRESSION: There is no radiographic evidence of acute cardiopulmonary process. Dictated by: Dictated on workstation # [id number]
[2021-04-14 18:59] VITALS: BP 102/70
== END 2021-04-14 18:59 | disposition home or self-care (01) ==
LOC: EDUNIT# 15:21 → ER 15:24
DX: R55 Syncope and collapse (principal); E16.2 Hypoglycemia, unspecified; F31.9 Bipolar disorder, unspecified; F17.210 Nicotine dependence, cigarettes, uncomplicated; Z79.899 Other long term (current) drug therapy
CPT/HCPCS: 36415; 70450; 71045; 72125; 80048; 82947; 83735; 84484; 85025; 93005; 93041

== ENCOUNTER 2021-07-31 04:08 | Emergency (ER) | payer SELFPAY ==
[2021-07-31 04:57] LABS: BASOPHILS % (AUTO) 0 % (0-10); EOSINOPHILS % (AUTO) 0 % (0-10); HEMATOCRIT 44 % (40-54); HEMOGLOBIN 15.1 g/dL (13.3-17.7); LYMPHOCYTES # (AUTO) 2.3 10^3/uL (1.0-4.0); LYMPHOCYTES % (AUTO) 20 % (12-44); MEAN CORPUSCULAR HEMOGLOBIN 33 pg (25-34); MEAN CORPUSCULAR HGB CONC 34 g/dL (32-36); MEAN CORPUSCULAR VOLUME 97 fL (80-99); MEAN PLATELET VOLUME 8.1 fL (9.0-12.2); MONOCYTES # (AUTO) 0.5 10^3/uL (0.0-1.0); MONOCYTES % (AUTO) 4 % (0-12); NEUTROPHILS # (AUTO) 8.6 10^3/uL (1.8-7.8); NEUTROPHILS % (AUTO) 75 % (42-75); PLATELET COUNT 327 10^3/uL (130-400); WHITE BLOOD COUNT 11.5 10^3/uL (4.3-11.0)
[2021-07-31 05:13] LABS: ALBUMIN 4.5 GM/DL (3.2-4.5)
[2021-07-31 05:14] LABS: POTASSIUM 3.5 MMOL/L (3.6-5.0)
[2021-07-31 05:15] LABS: CALCIUM 9.3 MG/DL (8.5-10.1)
[2021-07-31 05:16] LABS: TOTAL PROTEIN 7.5 GM/DL (6.4-8.2)
[2021-07-31 05:18] LABS: BILIRUBIN,TOTAL 0.7 MG/DL (0.1-1.0); INR 1.1 (0.8-1.4); PROTHROMBIN TIME PATIENT 14.2 SEC (12.2-14.7)
[2021-07-31 05:20] LABS: CREATININE SERUM 1.12 MG/DL (0.60-1.30)
[2021-07-31 05:23] LABS: MAGNESIUM 1.9 MG/DL (1.6-2.4)
[2021-07-31 05:48] LABS: AMPHETAMINE SCREEN, URINE NEGATIVE (NEGATIVE); BARBITURATE SCREEN URINE NEGATIVE (NEGATIVE); BENZODIAZEPINES SCREEN URINE NEGATIVE (NEGATIVE); CANNABINOID SCREEN, URINE POSITIVE (NEGATIVE); COCAINE SCREEN URINE POSITIVE (NEGATIVE); METHADONE STAT NEGATIVE (NEGATIVE); METHAMPHETAMINE SCREEN URINE S NEGATIVE (NEGATIVE); OPIATE SCREEN URINE NEGATIVE (NEGATIVE); OXYCODONE STAT NEGATIVE (NEGATIVE); PROPOXYPHENE STAT NEGATIVE (NEGATIVE); TRICYCLIC ANTIDEPRESSANTS SCRE NEGATIVE (NEGATIVE)
--- NOTE | 2021-07-31 06:22 | ED Chest Pain ---
General Chief Complaint: Chest Pain Stated Complaint: CP;HEADACHE Source: patient Exam Limitations: no limitations History of Present Illness Date Seen by Provider: Jul 31, 2021 Time Seen by Provider: 04:26 Allergies and Home Medications Allergies Coded Allergies: No Known Drug Allergies (Unverified , 12/30/13) Patient Home Medication List Amoxicillin/Potassium Clav (Augmentin 875-125 Tablet) 1 Each Tablet, 1 EACH PO BID Prescribed by: KEM ONEIL on 07/02/20 0626 Benzonatate (Tessalon Perle) 100 Mg Capsule, 100 MG PO Q6H PRN for COUGH Prescribed by: EKM ONEIL on 07/02/20 0626 Lamotrigine (Lamictal) 25 Mg Tablet, 25 MG PO DAILY Prescribed by: MAKSIM DIAMOND on 02/19/20 0446 Sulfamethoxazole/Trimethoprim (Bactrim Ds Tablet) 1 Each Tablet, 1 EACH PO BID Prescribed by: SANDY BUSH on 09/26/19 1806 Past Dmfecci-Gvadgr-Irxbix Hx Immunizations Up To Date Tetanus Booster (TDap): Unknown Seasonal Allergies Seasonal Allergies: No Past Medical History Surgeries: Yes Abdominal Respiratory: No Cardiac: No Neurological: No Reproductive Disorders: No Sexually Transmitted Disease: No HIV/AIDS: No Genitourinary: No Gastrointestinal: No Musculoskeletal: No Endocrine: No HEENT: No Cancer: No Psychosocial: Yes Bipolar, Schizophrenia Integumentary: No Blood Disorders: No Adverse Reaction/Blood Tranf: No Physical Exam Vital Signs Vital Signs - First Documented Capillary Refill : Height, Weight, BMI Height: 5'6" Weight: 145lbs. oz. 65.333820dq; 21.00 BMI Method:Stated Progress/Results/Core Measures Results/Orders Lab Results Laboratory Tests Test 07/31/21 04:45 07/31/21 05:28 Range/Units White Blood Count 11.5 H 4.3-11.0 10^3/uL Red Blood Count 4.54 4.30-5.52 10^6/uL Hemoglobin 15.1 13.3-17.7 g/dL Hematocrit 44 40-54 % Mean Corpuscular Volume 97 80-99 fL Mean Corpuscular Hemoglobin 33 25-34 pg Mean Corpuscular Hemoglobin Concent 34 32-36 g/dL Red Cell Distribution Width 12.6 10.0-14.5 % Platelet Count 327 130-400 10^3/uL Mean Platelet Volume 8.1 L 9.0-12.2 fL Immature Granulocyte % (Auto) 0 % Neutrophils (%) (Auto) 75 42-75 % Lymphocytes (%) (Auto) 20 12-44 % Monocytes (%) (Auto) 4 0-12 % Eosinophils (%) (Auto) 0 0-10 % Basophils (%) (Auto) 0 0-10 % Neutrophils # (Auto) 8.6 H 1.8-7.8 10^3/uL Lymphocytes # (Auto) 2.3 1.0-4.0 10^3/uL Monocytes # (Auto) 0.5 0.0-1.0 10^3/uL Eosinophils # (Auto) 0.0 0.0-0.3 10^3/uL Basophils # (Auto) 0.0 0.0-0.1 10^3/uL Immature Granulocyte # (Auto) 0.0 0.0-0.1 10^3/uL Prothrombin Time 14.2 12.2-14.7 SEC INR Comment 1.1 0.8-1.4 Activated Partial Thromboplast Time 31 24-35 SEC Sodium Level 143 135-145 MMOL/L Potassium Level 3.5 L 3.6-5.0 MMOL/L Chloride Level 107 98-107 MMOL/L Carbon Dioxide Level 22 21-32 MMOL/L Anion Gap 14 5-14 MMOL/L Blood Urea Nitrogen 9 7-18 MG/DL Creatinine 1.12 0.60-1.30 MG/DL Estimat Glomerular Filtration Rate 89 BUN/Creatinine Ratio 8 Glucose Level 83 70-105 MG/DL Calcium Level 9.3 8.5-10.1 MG/DL Corrected Calcium 8.9 8.5-10.1 MG/DL Magnesium Level 1.9 1.6-2.4 MG/DL Total Bilirubin 0.7 0.1-1.0 MG/DL Aspartate Amino Transf (AST/SGOT) 15 5-34 U/L Alanine Aminotransferase (ALT/SGPT) 22 0-55 U/L Alkaline Phosphatase 74 40-136 U/L Myoglobin 52.1 10.0-92.0 NG/ML Troponin I < 0.028 <0.028 NG/ML Total Protein 7.5 6.4-8.2 GM/DL Albumin 4.5 3.2-4.5 GM/DL Influenza Type A (RT-PCR) Not Detected Not Detecte Influenza Type B (RT-PCR) Not Detected Not Detecte SARS-CoV-2 RNA (RT-PCR) Not Detected Not Detecte Urine Opiates Screen NEGATIVE NEGATIVE Urine Oxycodone Screen NEGATIVE NEGATIVE Urine Methadone Screen NEGATIVE NEGATIVE Urine Propoxyphene Screen NEGATIVE NEGATIVE Urine Barbiturates Screen NEGATIVE NEGATIVE Ur Tricyclic Antidepressants Screen NEGATIVE NEGATIVE Urine Phencyclidine Screen NEGATIVE NEGATIVE Urine Amphetamines Screen NEGATIVE NEGATIVE Urine Methamphetamines Screen NEGATIVE NEGATIVE Urine Benzodiazepines Screen NEGATIVE NEGATIVE Urine Cocaine Screen POSITIVE H NEGATIVE Urine Cannabinoids Screen POSITIVE H NEGATIVE My Orders Orders - MAKSIM PAUL MD Covid 19 Inhouse Test (07/31/21 04:26) Influenza A And B By Pcr (07/31/21 04:26) Cbc With Automated Diff (07/31/21 04:29) Magnesium (07/31/21 04:29) Chest 1 View, Ap/Pa Only (07/31/21 04:29) Ekg Tracing (07/31/21 04:29) Comprehensive Metabolic Panel (07/31/21 04:29) Myoglobin Serum (07/31/21 04:29) Protime With Inr (07/31/21 04:29) Partial Thromboplastin Time (07/31/21 04:29) O2 (07/31/21 04:29) Monitor-Rhythm Ecg Trace Only (07/31/21 04:29) Ed Iv/Invasive Line Start (07/31/21 04:29) Troponin I Leonardo (07/31/21 04:29) Drug Screen Stat (Urine) (07/31/21 04:29) Vital Signs/I&O 07/31/21 07/31/21 04:09 04:09 Temp 36.9 Pulse 110 Resp 16 B/P (MAP) 131/90 (104) Pulse Ox 98 O2 Delivery Room Air Room Air Initial ECG Impression Date: Jul 31, 2021 Initial ECG Impression Time: 04:41 Initial ECG Rate: 103 Initial ECG Rhythm: S.Tach Comment Sinus tachycardia with no diagnostic ST elevation or depression. No abnormal intervals or axis deviation. Departure Impression Primary Impression: Chest pain Qualified Codes: R07.9 - Chest pain, unspecified Additional Impression: Positive urine drug screen Disposition: 01 HOME, SELF-CARE Condition: Improved Departure-Patient Inst. Decision time for Depature: 06:20 Referrals: NO,LOCAL PHYSICIAN (PCP/Family) Primary Care Physician Patient Instructions: Chest Pain (DC), Drug Abuse and Drug Addiction (DC) Add. Discharge Instructions: Drink plenty of water to stay well-hydrated. Follow-up with a primary care provider soon as possible. Avoid use or exposure to illicit substances such as cocaine, marijuana, etc. as these substances may induce further chest pain. Call with questions or concerns. Return to the ER if you have worsening symptoms. All discharge instructions reviewed with patient and/or family. Voiced understanding. MAKSIM PAUL MD Jul 31, 2021 06:22
[2021-07-31 06:40] VITALS: BP 127/75
--- NOTE | 2021-07-31 08:11 | Diagnostic Imaging Report ---
EXAMINATION: Chest radiograph, portable AP view. DATE: 07/31/2021 6:27 AM INDICATION: 36-year-old male, chest pain. COMPARISON: April 14, 2021. FINDINGS: Heart size and mediastinal contours are unchanged. There is no identified pneumothorax. There is no large pleural effusion. There is no identified focal airspace consolidation. IMPRESSION: No identified acute cardiopulmonary abnormality. Dictated by: Dictated on workstation # [id number]
== END 2021-07-31 06:42 | disposition home or self-care (01) ==
LOC: ER 04:09
DX: R07.9 Chest pain, unspecified (principal); R82.5 Elevated urine levels of drugs, medicaments and biological substances; F31.9 Bipolar disorder, unspecified; Z20.822 Contact with and (suspected) exposure to COVID-19; Z79.899 Other long term (current) drug therapy
CPT/HCPCS: 36415; 71045; 80053; 80306; 83735; 83874; 84484; 85025; 85610; 85730; 87636; 93005; 93041

== ENCOUNTER 2021-08-06 20:40 | Emergency (ER) | payer SELFPAY ==
[~2021-08-06] VITALS: Ht 170 cm; Wt 64.0 kg
--- NOTE | 2021-08-06 21:12 | ED General ---
General Chief Complaint: Rect Problems Stated Complaint: HEMORRHOID PROBLEM Nursing Triage Note: Patient reports he has a hemrrohoid that popped out last night around 0100. Denies active bleeding, unconfortable like a rock. Patient ambulated to FT2, with spouse. History of Present Illness Date Seen by Provider: Aug 06, 2021 Time Seen by Provider: 20:50 Initial Comments 36-year-old male presents for external hemorrhoid has been present since last night. He has not tried any sptf-rny-dikrnkl treatments. He has had these in the past and been evaluated in [place] for them. He denies any difficulties passing stool. He denies any blood in his stools or when wiping. Timing/Duration: 12-24 Hours Severity: Mild Associated Systoms: Denies Symptoms Allergies and Home Medications Allergies Coded Allergies: No Known Drug Allergies (Unverified , 12/30/13) Patient Home Medication List Home Medication List Reviewed: Yes Amoxicillin/Potassium Clav (Augmentin 875-125 Tablet) 1 Each Tablet, 1 EACH PO BID Prescribed by: KEM ONEIL on 07/02/20 06 Benzonatate (Tessalon Perle) 100 Mg Capsule, 100 MG PO Q6H PRN for COUGH Prescribed by: KEM ONEIL on 07/02/20 06 Lamotrigine (Lamictal) 25 Mg Tablet, 25 MG PO DAILY Prescribed by: MAKSIM DIAMOND on 02/19/20 0446 Sulfamethoxazole/Trimethoprim (Bactrim Ds Tablet) 1 Each Tablet, 1 EACH PO BID Prescribed by: SANDY BUSH on 09/26/19 1806 Review of Systems Review of Systems Constitutional: no symptoms reported, see HPI Gastrointestinal: see HPI, other (hemrrhoids) All Other Systems Reviewed Negative Unless Noted: Yes Past Kykcdxu-Lzzcwi-Ucvvbf Hx Patient Social History Tobacco Use?: Yes Tobacco type used: Cigarettes Smoking Status: Current Everyday Smoker Use of E-Cig and/or Vaping dev: No Substance use?: Yes Substance type: Marijuana Substance frequency: Daily Alcohol Use?: Yes Alcohol type: Hard Liquor Alcohol Frequency: Once in a while Pt feels they are or have been: No Immunizations Up To Date Tetanus Booster (TDap): Unknown Seasonal Allergies Seasonal Allergies: No Past Medical History Surgery/Hospitalization HX: Ulcer removal 2019 Dental surgery as a child. Surgeries: Yes Abdominal Respiratory: No Cardiac: No Neurological: No Reproductive Disorders: No Sexually Transmitted Disease: No HIV/AIDS: No Genitourinary: No Gastrointestinal: No Musculoskeletal: No Endocrine: No HEENT: No Cancer: No Psychosocial: Yes Bipolar, Schizophrenia Integumentary: No Blood Disorders: No Adverse Reaction/Blood Tranf: No Family Medical History Reviewed Nursing Family Hx Physical Exam Vital Signs Vital Signs - First Documented Capillary Refill : Less Than 3 Seconds Height, Weight, BMI Height: 5'6" Weight: 145lbs. oz. 65.414988mx; 22.00 BMI Method:Stated General Appearance: No Apparent Distress, WD/WN Respiratory: Chest Non Tender, Lungs Clear, Normal Breath Sounds Cardiovascular: Regular Rate, Rhythm, No Edema, No Murmur, Normal Peripheral Pulses Gastrointestinal: Normal Bowel Sounds, Non Tender, Soft Rectal: Normal Rectal Tone, Hemorrhoids (external, firm, no bleeding), Tenderness Neurologic/Psychiatric: Alert, Oriented x3, No Motor/Sensory Deficits, Normal Mood/Affect Skin: Normal Color, Warm/Dry Progress/Results/Core Measures Suspected Sepsis SIRS Temperature: Pulse: 100 Respiratory Rate: 20 Blood Pressure 108 /69 Mean: 82 Results/Orders Vital Signs/I&O 08/06/21 08/06/21 20:47 20:47 Temp 36.9 36.9 Pulse 100 100 Resp 20 20 B/P (MAP) 108/69 (82) 108/69 Pulse Ox 100 98 O2 Delivery Room Air Room Air Capillary Refill : Less Than 3 Seconds Blood Pressure Mean: 82 Departure Impression Primary Impression: Hemorrhoids Qualified Codes: K64.1 - Second degree hemorrhoids Disposition: 01 HOME, SELF-CARE Condition: Improved Departure-Patient Inst. Decision time for Depature: 21:10 Referrals: NO,LOCAL PHYSICIAN (PCP) Primary Care Physician [facility] DO Patient Instructions: Hemorrhoids (DC) Add. Discharge Instructions: Warm moist compress to the hemorrhoids as needed. Apply Tucks pads 4-5 times daily as needed. Clean the area thoroughly after bowel movements. Apply Preparation H or other hemorrhoid cream externally 3-4 times daily. Take an gloc-lil-paaboao stool softener and increase water in your diet. Follow-up with your primary care provider at [facility] or schedule an appointment with Dr. Briggs if symptoms are not improving or worsen. Return to the emergency department for new, urgent healthcare needs. All discharge instructions reviewed with patient and/or family. Voiced understanding. RIVERA PEARL Aug 06, 2021 21:12
[2021-08-06 21:16] VITALS: BP 108/69
== END 2021-08-06 21:16 | disposition home or self-care (01) ==
LOC: EDUNIT# 20:40 → ER 20:42
DX: K64.4 Residual hemorrhoidal skin tags (principal); F31.9 Bipolar disorder, unspecified; F17.210 Nicotine dependence, cigarettes, uncomplicated; Z79.899 Other long term (current) drug therapy
CPT/HCPCS: 99281

== ENCOUNTER 2021-08-19 05:21 | Emergency (ER) | payer SELFPAY ==
[~2021-08-19] VITALS: Ht 170 cm; Wt 61.6 kg
[2021-08-19 05:55] VITALS: BP 138/94
--- NOTE | 2021-08-19 06:47 | ED General ---
General Chief Complaint: Chest Wall Stated Complaint: CP,IRREGULAR HRT RATE Nursing Triage Note: Pt arrives w/ per POV w/ c/o "chest tightness" and runny nose for the last 3-4 days. Source of Information: Patient Exam Limitations: No Limitations History of Present Illness Date Seen by Provider: Aug 19, 2021 Time Seen by Provider: 06:32 Initial Comments Patient is a 36-year-old male who presents to the emergency department today wit h a chief complaint of shortness of breath and "I just do not feel right". He is concerned that he has COVID-19. He states he had it last year and he feels the same. Complains of some muscle cramping in his calves, body aches mild sore throat. Onset of symptoms 3 days ago. He is not Covid vaccinated. Reports history of cocaine use last use 3 days ago. Not really taking anything for symptoms. Does also complain of some ongoing hemorrhoid pain. Using Preparation H. No other complaints of illness or injury. All other review of systems reviewed and negative except as stated. Timing/Duration: 2-3 Days Severity: Mild Associated Systoms: Malaise, Shortness of Air, Other (diarrhea) Allergies and Home Medications Allergies Coded Allergies: No Known Drug Allergies (Unverified , 12/30/13) Patient Home Medication List Home Medication List Reviewed: Yes Amoxicillin/Potassium Clav (Augmentin 875-125 Tablet) 1 Each Tablet, 1 EACH PO BID Prescribed by: KEM ONEIL on 07/02/20 06 Benzonatate (Tessalon Perle) 100 Mg Capsule, 100 MG PO Q6H PRN for COUGH Prescribed by: KEM ONEIL on 07/02/20 06 Lamotrigine (Lamictal) 25 Mg Tablet, 25 MG PO DAILY Prescribed by: MAKSIM DIAMOND on 02/19/20 0446 Sulfamethoxazole/Trimethoprim (Bactrim Ds Tablet) 1 Each Tablet, 1 EACH PO BID Prescribed by: SANDY BUSH on 09/26/19 5076 Review of Systems Review of Systems Constitutional: see HPI EENTM: throat pain Respiratory: short of breath Cardiovascular: no symptoms reported Gastrointestinal: diarrhea Genitourinary: no symptoms reported Musculoskeletal: muscle cramps Skin: no symptoms reported Psychiatric/Neurological: No Symptoms Reported All Other Systems Reviewed Negative Unless Noted: Yes Past Oufdsuj-Kjezhf-Gycnex Hx Patient Social History Tobacco Use?: Yes Tobacco type used: Cigarettes Smoking Status: Current Everyday Smoker Use of E-Cig and/or Vaping dev: No Substance use?: Yes Substance type: Marijuana Additional substance use comme: smokes Substance frequency: Couple times a week Alcohol Use?: Yes Alcohol type: Beer, Hard Liquor, Wine Alcohol Frequency: Several times a month Pt feels they are or have been: No Immunizations Up To Date Tetanus Booster (TDap): Unknown Influenza Vaccine Up-to-Date: No; Not Current First/Initial COVID19 Vaccinat: unvaccinated Seasonal Allergies Seasonal Allergies: No Past Medical History Surgery/Hospitalization HX: Ulcer removal 2019 Dental surgery as a child. Surgeries: Yes Abdominal Respiratory: No Cardiac: No Neurological: No Reproductive Disorders: No Sexually Transmitted Disease: No HIV/AIDS: No Genitourinary: No Gastrointestinal: No Musculoskeletal: No Endocrine: No HEENT: No Cancer: No Psychosocial: Yes Bipolar, Schizophrenia Integumentary: No Blood Disorders: No Adverse Reaction/Blood Tranf: No Physical Exam Vital Signs Vital Signs - First Documented 08/19/21 05:55 Temp 37.1 Pulse 106 Resp 21 B/P (MAP) 138/94 (109) Capillary Refill : Less Than 3 Seconds Height, Weight, BMI Height: 5'6" Weight: 145lbs. oz. 65.303994pg; 21.00 BMI Method:Stated General Appearance: No Apparent Distress, WD/WN Eyes: Bilateral Eye Normal Inspection, Bilateral Eye PERRL, Bilateral Eye EOMI HEENT: PERRL/EOMI, TMs Normal, Normal ENT Inspection, Pharynx Normal, Moist Mucous Membranes Neck: Normal Inspection, Non Tender, Supple Respiratory: Lungs Clear, Normal Breath Sounds, No Accessory Muscle Use, No Respiratory Distress Cardiovascular: Regular Rate, Rhythm (tachy 112 bpm), Normal Peripheral Pulses, Other (no LE edema) Gastrointestinal: Non Tender, Soft Extremity: Normal Capillary Refill, Normal Inspection, Normal Range of Motion, No Calf Tenderness, No Pedal Edema Neurologic/Psychiatric: Alert, Oriented x3, No Motor/Sensory Deficits, Normal 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 Also advised to drink plenty of fluids. Tylenol for body aches. Use over the counter TUCKS pads for hemorrhoids. Send o ut COVID swab obtained. Patient advised to quarantine until he gets his results tomorrow. Advised the Covid vaxx is a good idea to prevent possibility of need for hospitalization in the future with covid infection. He verbalizes understanding, all questions are sought and answered. Departure Impression Primary Impression: Person under investigation for COVID-19 Disposition: 01 HOME, SELF-CARE Condition: Stable Departure-Patient Inst. Decision time for Depature: 06:44 Referrals: [facility] LIZZIE,LOCAL PHYSICIAN (PCP) Primary Care Physician Patient Instructions: COVID-19 ED Add. Discharge Instructions: Drink lots of fluids to stay well hydrated. Avoid the use of cocaine to help your heart. Tylenol over the counter 2 tablets every 6 hours as needed for body aches, sore throat, fever over 100.4. Over the counter TUCKS pads as needed for hemorrhoid inflammation. We have done a "send out" COVID test. Results will be back tomorrow, please quarantine, isolate, mask until you get results back. Come back to the Emergency Department for any new, concerning or emergent complaints. Work/School Note: Family Work Note, Patient Received Medical Care In the Emergency Department On: Aug 19, 2021 Patient Will Be Able to Return to Work/School On: Aug 20, 2021 Work Release Form Date Seen in the Emergency Department: Aug 19, 2021 Return to Work: Aug 21, 2021 BEENA YADAV MD Aug 19, 2021 06:47
== END 2021-08-19 07:05 | disposition home or self-care (01) ==
LOC: EDUNIT# 05:21 → ER 05:24
DX: Z20.822 Contact with and (suspected) exposure to COVID-19 (principal); F31.9 Bipolar disorder, unspecified; F17.210 Nicotine dependence, cigarettes, uncomplicated; Z79.899 Other long term (current) drug therapy
CPT/HCPCS: 87636; 99283

== ENCOUNTER 2021-12-30 20:04 | Emergency (ER) | payer SELFPAY ==
[2021-12-30] MEDS ORDERED: IBUPROFEN 600 MG (MOTRIN) TAB PO ONE (20:15)
--- NOTE | 2021-12-30 20:17 | ED Upper Extremity ---
General Stated Complaint: R HAND INJ Source: patient Exam Limitations: no limitations (CHRISTINA RUTHERFORD) History of Present Illness Date Seen by Provider: Dec 30, 2021 Time Seen by Provider: 20:13 Initial Comments Patient is a 36-year-old male presents ED with right hand pain. Patient states last night he punched a car window. The window did not break. States this was secondary to frustration. Report immediate pain and applied a cold "pop" onto the swelling. Pain is located to the right dorsum hand with the. Reports normal active range of motion of the fingers but reports pain. Denies any wrist pain. Reports history of previous fracture. Denies taking anything for pain. Denies fever, chills, cough, chest pain, shortness of breath (CHRISTINA RUTHERFORD) Allergies and Home Medications Allergies Coded Allergies: No Known Drug Allergies (Unverified , 12/30/13) Patient Home Medication List Home Medication List Reviewed: Yes (CHRISTINA RUTHERFORD) Amoxicillin/Potassium Clav (Augmentin 875-125 Tablet) 1 Each Tablet, 1 EACH PO BID Prescribed by: KEM ONEIL on 07/02/20625 Benzonatate (Tessalon Perle) 100 Mg Capsule, 100 MG PO Q6H PRN for COUGH Prescribed by: KEM ONEIL on 07/02/20625 Ibuprofen (Ibuprofen) 600 Mg Tablet, 600 MG PO Q6H Prescribed by: ATA JOHNSON on 12/30/212041 Lamotrigine (Lamictal) 25 Mg Tablet, 25 MG PO DAILY Prescribed by: MAKSIM DIAMOND on 02/19/20 044 Sulfamethoxazole/Trimethoprim (Bactrim Ds Tablet) 1 Each Tablet, 1 EACH PO BID Prescribed by: SANDY BUSH on 09/26/19 1806 Review of Systems Constitutional: No chills, No diaphoresis, No malaise, No weakness EENTM: No ear pain, No double vision, No mouth pain, No throat swelling Respiratory: No cough Cardiovascular: No chest pain, No edema Gastrointestinal: No RUQ, No abdominal pain, No diarrhea, No nausea, No vomiting Musculoskeletal: No back pain; joint pain, joint swelling, muscle pain, muscle stiffness Skin: change in color (CHRISTINA RUTHERFORD) Past Bubsxmt-Wpuqib-Mfqipi Hx Immunizations Up To Date Tetanus Booster (TDap): Unknown First/Initial COVID19 Vaccinat: unvaccinated (CHRISTINA RUTHERFORD) Seasonal Allergies Seasonal Allergies: No (CHRISTINA RUTHERFORD) Past Medical History Surgery/Hospitalization HX: Ulcer removal 2019 Dental surgery as a child. Surgeries: Yes Abdominal Respiratory: No Cardiac: No Neurological: No Reproductive Disorders: No Sexually Transmitted Disease: No HIV/AIDS: No Genitourinary: No Gastrointestinal: No Musculoskeletal: No Endocrine: No HEENT: No Cancer: No Psychosocial: Yes Bipolar, Schizophrenia Integumentary: No Blood Disorders: No Adverse Reaction/Blood Tranf: No (CHRISTINA RUTHERFORD) Physical Exam Vital Signs Vital Signs - First Documented 12/30/21 20:09 Temp 36.8 Pulse 114 Resp 18 B/P (MAP) 121/69 (86) (MAKSIM PAUL MD) Vital Signs Capillary Refill : (CHRISTINA RUTHERFORD) Height, Weight, BMI Height: 5'6" Weight: 145lbs. oz. 65.421910vk; 21.00 BMI Method:Stated General Appearance: WD/WN, no apparent distress HEENT: PERRL/EOMI, normal ENT inspection, TMs normal, pharynx normal Neck: non-tender, full range of motion, supple Cardiovascular: regular rate, rhythm, no edema, no gallop, no JVD Respiratory: chest non-tender, lungs clear, normal breath sounds, no respiratory distress, no accessory muscle use Gastrointestinal: normal bowel sounds, non tender, soft Back: normal inspection Wrist: Yes normal inspection, Yes non-tender, Yes no evidence of injury, Yes normal ROM Hand: bone tenderness (Tenderness to the third and fourth MCP joint. Normal active range of motion the digits. No obvious bone deformity crepitus, step), ecchymosis (Right dorsum hand), swelling (Right dorsum hand) Neurologic/Tendon: normal motor functions, normal tendon functions Skin: other (Swelling and bruising to right dorsum hand) (CHRISTINA RUTHERFORD) Progress/Results/Core Measures Results/Orders Medications Given in ED Current Medications Medications Dose Ordered Sig/Kolby Route Start Time Stop Time Status Last Admin Dose Admin Ibuprofen 600 mg ONCE ONCE PO 12/30/21 20:15 12/30/21 20:16 DC 12/30/21 20:16 600 MG (MAKSIM PAUL MD) Vital Signs/I&O 12/30/21 12/30/21 20:09 20:47 Temp 36.8 36.8 Pulse 114 110 Resp 18 18 B/P (MAP) 121/69 (86) 118/70 (MAKSIM PAUL MD) Departure Communication (PCP) X-ray of the right hand was negative for fracture. Does have adequate movement of his digits. Contusion noted on the dorsum side. Recommend ice Camacho wrap for support. Anti-inflammatories at home. Orthopedic outpatient follow-up as needed. Return precaution were discussed with patient. (CHRISTINA RUTHERFORD) Impression Primary Impression: Contusion of hand Disposition: 01 HOME, SELF-CARE Condition: Stable Departure-Patient Inst. Decision time for Depature: 20:16 (CHRISTINA RUTHERFORD) Referrals: NO,LOCAL PHYSICIAN (PCP) Primary Care Physician MAGUI CLAY MD Patient Instructions: Hand Pain (DC) Scripts Ibuprofen (Ibuprofen) 600 Mg Tablet 600 MG PO Q6H for PAIN, #12 TAB 0 Refills Prov: CHRISTINA RUTHERFORD 12/30/21 ATTENDING PHYSICIAN NOTE: I was physically present as attending physician in the emergency department during the care of this patient, but I was not directly involved in the decision making or delivery of care for this patient. (MAKSIM PAUL MD) CRHISTINA RUTHERFORD Dec 30, 2021 20:17 MAKSIM PAUL MD Dec 31, 2021 01:20
--- NOTE | 2021-12-30 20:28 | Diagnostic Imaging Report ---
EXAM: Hand, right, 3 views INDICATION: 3rd and 4th right metacarpal pain. COMPARISON: None. FINDINGS/ IMPRESSION: No fracture or malalignment. Soft tissue shadows are unremarkable. Dictated by: Dictated on workstation # [id number]
[2021-12-30] MEDS ORDERED: IBUP-1773 PO (20:42)
[2021-12-30 20:47] VITALS: BP 118/70
== END 2021-12-30 20:48 | disposition home or self-care (01) ==
LOC: EDUNIT# 20:04 → ER 20:05
DX: S60.221A Contusion of right hand, initial encounter (principal); W22.8XXA Striking against or struck by other objects, initial encounter
CPT/HCPCS: 73130

== ENCOUNTER 2022-01-14 16:45 | Emergency (ER) | payer SELFPAY ==
[~2022-01-14] VITALS: Ht 167 cm; Wt 65.7 kg
[~2022-01-14 16:45] MED LIST changes: +IBUP-1773 PO
[2022-01-14 17:02] VITALS: BP 112/83
--- NOTE | 2022-01-14 17:41 | ED Cough/URI ---
General Chief Complaint: Cough/Cold/Flu Symptoms Stated Complaint: COUGH/L LUNG PAIN Nursing Triage Note: PT PRESENTS TO ED WITH COMPLAINTS OF COUGH, CHEST CONGESTION, AND L CHEST WALL PAIN SINCE LAST NIGHT. Source: patient Exam Limitations: no limitations (ELIAS DANGELO) History of Present Illness Date Seen by Provider: Jan 14, 2022 Time Seen by Provider: 17:32 Initial Comments This is a healthy 36-year-old male that presents to the emergency room for evaluation of cough, congestion and pain to the left side of his chest when he coughs. He states his symptoms started last night and have been persistent today. He has not attempted any therapy prior to arrival. He denies fever, chills, shortness of breath, vomiting or diarrhea. Timing/Duration: yesterday Severity/Quality: moderate Prior Episodes/Possible Cause: no prior episodes (ELIAS DANGELO) Allergies and Home Medications Allergies Coded Allergies: No Known Drug Allergies (Unverified , 12/30/13) Patient Home Medication List Home Medication List Reviewed: Yes (ELIAS DANGELO) Albuterol Sulfate (Proair Hfa) 1 Puff Puff, 2 PUFF IH Q4H Prescribed by: Torey Dangelo on 01/14/221744 Amoxicillin/Potassium Clav (Augmentin 875-125 Tablet) 1 Each Tablet, 1 EACH PO BID Prescribed by: KEM ONEIL on 07/02/20625 Benzonatate (Tessalon Perle) 100 Mg Capsule, 100 MG PO Q6H PRN for COUGH Prescribed by: KEM ONEIL on 07/02/20625 Ibuprofen (Ibuprofen) 600 Mg Tablet, 600 MG PO Q6H Prescribed by: ATA JOHNSON on 12/30/212041 Lamotrigine (Lamictal) 25 Mg Tablet, 25 MG PO DAILY Prescribed by: MAKSIM DIAMOND on 02/19/20445 Prednisone (Prednisone) 20 Mg Tab, 20 MG PO BID Prescribed by: Torey Dangelo on 01/14/221744 Promethazine/Dextromethorphan (Promethazine-Dm Syrup) 6.25 Mg-15 Mg/5 Ml Syrup, 5 ML PO Q6H PRN for COUGH Prescribed by: Torey Dangelo on 6/26/22 1745 Sulfamethoxazole/Trimethoprim (Bactrim Ds Tablet) 1 Each Tablet, 1 EACH PO BID Prescribed by: SANDY BUSH on 09/26/19 180 Review of Systems Review of Systems Constitutional: malaise EENTM: no symptoms reported Respiratory: cough; No short of breath Cardiovascular: no symptoms reported Gastrointestinal: no symptoms reported Genitourinary: no symptoms reported Musculoskeletal: other (Left posterior chest wall pain) Skin: no symptoms reported Psychiatric/Neurological: No Symptoms Reported (ELIAS DANGELO) Past Kozbbpy-Ctfdue-Tzvzpy Hx Patient Social History Tobacco Use?: Yes Tobacco type used: Cigarettes Smoking Status: Current Everyday Smoker Substance use?: Yes Substance type: Other Additional substance use comme: coccaine Substance frequency: Once in a while Alcohol Use?: Yes Alcohol Frequency: Once in a while Pt feels they are or have been: No (ELIAS DANGELO) Immunizations Up To Date Tetanus Booster (TDap): Unknown First/Initial COVID19 Vaccinat: unvaccinated Second COVID19 Vaccination Durga: unvaccinated Third COVID19 Vaccination Date: unvaccinated (ELIAS DANGELO) Seasonal Allergies Seasonal Allergies: No (ELIAS DANGELO) Past Medical History Surgery/Hospitalization HX: Ulcer removal 2019 Dental surgery as a child. BIPOLAR, SCHIZOPHRENIC Surgeries: Yes Abdominal Respiratory: No Cardiac: No Neurological: No Reproductive Disorders: No Sexually Transmitted Disease: No HIV/AIDS: No Genitourinary: No Gastrointestinal: No Musculoskeletal: No Endocrine: No HEENT: No Cancer: No Psychosocial: Yes Bipolar, Schizophrenia Integumentary: No Blood Disorders: No Adverse Reaction/Blood Tranf: No (ELIAS DANGELO) Physical Exam Vital Signs - First Documented 01/14/22 17:02 Temp 36.1 Pulse 104 Resp 18 B/P (MAP) 112/83 (93) Pulse Ox 99 O2 Delivery Room Air (MAKSIM PAUL MD) Capillary Refill : Less Than 3 Seconds (ELIAS DANGELO) Height: 5'6" Weight: 145lbs. oz. 65.662228nw; 23.00 BMI Method:Stated General Appearance: WD/WN, no apparent distress HEENT: PERRL/EOMI, normal ENT inspection, TMs normal Neck: non-tender Respiratory: lungs clear, normal breath sounds, no respiratory distress, no accessory muscle use, other (Minimal tenderness to the left posterior lateral chest wall. 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, alert, oriented x 3 Skin: normal color (ELIAS DANGELO) Progress/Results/Core Measures Suspected Sepsis SIRS Temperature: Pulse: 104 Respiratory Rate: 18 Blood Pressure 112 /83 Mean: 93 (ELIAS DNAGELO) Results/Orders Lab Results Laboratory Tests Test 01/14/22 17:09 Range/Units Influenza Type A (RT-PCR) Not Detected Not Detecte Influenza Type B (RT-PCR) Not Detected Not Detecte SARS-CoV-2 RNA (RT-PCR) Not Detected Not Detecte (MAKSIM PAUL MD) My Orders Orders - MAKSIM PAUL MD Covid 19 Inhouse Test (01/14/22 17:13) Influenza A And B By Pcr (01/14/22 17:13) (MAKSIM PAUL MD) Vital Signs/I&O 01/14/22 01/14/22 01/14/22 17:02 17:02 18:28 Temp 36.1 Pulse 104 87 Resp 18 16 B/P (MAP) 112/83 (93) Pulse Ox 99 98 O2 Delivery Room Air (MAKSIM PAUL MD) Vital Signs/I&O Capillary Refill : Less Than 3 Seconds (ELIAS DANGELO) Blood Pressure Mean: 93 Departure Communication (Admissions) Patient is afebrile, non-toxic, no distress. Chest X-ray unremarkable. Covid-19 test negative. Symptomatic therapy at home to be started. No evidence/suspicion of hemo/pneumothorax, pleural effusion, AMI, PE or other emergent condition. (ELIAS DANGELO) Impression Primary Impression: Acute bronchitis Disposition: 01 HOME, SELF-CARE Condition: Stable Departure-Patient Inst. Decision time for Depature: 17:36 (ELIAS DANGELO) Referrals: [facility] [place],LOCAL PHYSICIAN (PCP) Primary Care Physician Patient Instructions: Acute Bronchitis, Adult (DC) Add. Discharge Instructions: Please follow up with primary care as we discussed. Take your medications until complete. All discharge instructions reviewed with patient and/or family. Voiced unders tanding. Scripts Prednisone (Prednisone) 20 Mg Tab 20 MG PO BID for 5 Days, #10 TAB Take 3 tabs(60mg)daily, decrease by 1/2 tab(10mg)daily. Prov: ELIAS DANGELO 01/14/22 Promethazine/Dextromethorphan (Promethazine-Dm Syrup) 6.25 Mg-15 Mg/5 Ml Syrup 5 ML PO Q6H PRN for COUGH for 7 Days, #240 ML Prov: ELIAS DANGELO 01/14/22 Albuterol Sulfate (PROAIR HFA) 1 Puff Puff 2 PUFF IH Q4H for Cough for 7 Days, #1 EA 1 PUFF = 90 MCG Prov: ELIAS DANGELO 01/14/22 ATTENDING PHYSICIAN NOTE: I was physically present as attending physician in the emergency department during the care of this patient. I have a place to the initial orders based on chief complaint, but I was not otherwise directly involved in the decision making or delivery of care for this patient. (MAKSIM PAUL MD) ELIAS DANGELO Jan 14, 2022 17:41 MAKSIM PAUL MD Jan 14, 2022 19:41
[2022-01-14] MEDS ORDERED: D-ME473S11 PO (17:45)
[2022-01-14] MEDS ORDERED: PRD20T PO (17:45)
[2022-01-14] MEDS ORDERED: RT-ALBUINH IH (17:45)
--- NOTE | 2022-01-14 18:03 | Diagnostic Imaging Report ---
INDICATION: Cough and congestion. EXAMINATION: PA and lateral views of the chest were obtained at 5:49 p.m. FINDINGS: Heart and mediastinal silhouette are normal in appearance. The lungs are clear. There is no pneumothorax or pleural fluid. IMPRESSION: Negative chest. Dictated by: Dictated on workstation # [id number]
== END 2022-01-14 18:28 | disposition home or self-care (01) ==
LOC: EDUNIT# 16:45 → ER 16:47
DX: J20.9 Acute bronchitis, unspecified (principal); F17.210 Nicotine dependence, cigarettes, uncomplicated; Z20.822 Contact with and (suspected) exposure to COVID-19; Z28.310 Unvaccinated for COVID-19
CPT/HCPCS: 71046; 87636

== ENCOUNTER 2022-02-02 03:08 | Emergency (ER) | payer SELFPAY ==
[~2022-02-02] VITALS: Ht 167.7 cm; Wt 65.8 kg
[~2022-02-02 03:08] MED LIST changes: +D-ME473S11 PO; +PRD20T PO; +RT-ALBUINH IH
[2022-02-02 03:15] VITALS: BP 126/94
--- NOTE | 2022-02-02 03:22 | ED GI ---
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 Patient states that he has had hemorrhoids off and on for at least the last 7 or 8 years. He occasionally uses Preparation H pads but not consistently. He states over the last 3 months they have been really bothering him and tonight are worse. He complains of discomfort and bleeding. He has had them opened before. Some lower abdominal discomfort. No problems with urination, no fevers or chills. No other complaints of illness or injury No allergies to medications. All other review of systems reviewed and negative except as stated. Timing/Duration: Other (3 months) Severity/Quality: Severe Location: Other (rectal) Activities at Onset: None Allergies and Home Medications Allergies Coded Allergies: No Known Drug Allergies (Unverified , 12/30/13) Patient Home Medication List Home Medication List Reviewed: Yes No Active Prescriptions or Reported Meds Review of Systems Review of Systems Constitutional: see HPI EENTM: No Symptoms Reported Respiratory: No Symptoms Reported Cardiovascular: No Symptoms Reported Gastrointestinal: Blood Streaked Stools, Rectal Bleeding Genitourinary: Other (rectal pain) Musculoskeletal: muscle cramps Skin: no symptoms reported Psychiatric/Neurological: No Symptoms Reported All Other Systems Reviewed Negative Unless Noted: Yes Past Gfaxwzv-Qhsays-Nzzvpl Hx Immunizations Up To Date Tetanus Booster (TDap): Unknown First/Initial COVID19 Vaccinat: unvaccinated Second COVID19 Vaccination Durga: unvaccinated Third COVID19 Vaccination Date: unvaccinated Seasonal Allergies Seasonal Allergies: No Past Medical History Surgery/Hospitalization HX: Ulcer removal 2019 Dental surgery as a child. BIPOLAR, SCHIZOPHRENIC Surgeries: Yes Abdominal Respiratory: No Cardiac: No Neurological: No Reproductive Disorders: No Sexually Transmitted Disease: No HIV/AIDS: No Genitourinary: No Gastrointestinal: No Musculoskeletal: No Endocrine: No HEENT: No Cancer: No Psychosocial: Yes Bipolar, Schizophrenia Integumentary: No Blood Disorders: No Adverse Reaction/Blood Tranf: No Physical Exam Vital Signs Vital Signs - First Documented 02/02/22 03:15 Temp 36.7 Pulse 94 Resp 18 B/P (MAP) 126/94 (105) Pulse Ox 97 O2 Delivery Room Air Capillary Refill : Height/Weight/BMI Height: 5'6" Weight: 145lbs. oz. 65.235566xv; 23.00 BMI Method:Stated General Appearance: WD/WN, no apparent distress, thin Neck: normal inspection Respiratory: no respiratory distress, no accessory muscle use Cardiovascular: regular rate, rhythm Gastrointestinal: non tender, soft Genital/Rectal: other (multiple inflammed hemmorhoids surrounding the anus; none are thrombosed. very tender to palpation. no active bleeding. no evidence of perirectal abscess.) Extremities: normal range of motion, non-tender, normal inspection, no pedal edema Neurologic/Psychiatric: alert, normal mood/affect, oriented x 3 Skin: normal color, warm/dry Progress/Results/Core Measures Results/Orders Vital Signs/I&O 02/02/22 03:15 Temp 36.7 Pulse 94 Resp 18 B/P (MAP) 126/94 (105) Pulse Ox 97 O2 Delivery Room Air Departure Impression Primary Impression: External hemorrhoid Disposition: 01 HOME, SELF-CARE Condition: Stable Departure-Patient Inst. Decision time for Depature: 03:31 Referrals: [facility],LOCAL PHYSICIAN (PCP) Primary Care Physician Patient Instructions: Hemorrhoids Add. Discharge Instructions: Use the suppositories twice a day for 5-7 days. Once in the morning and once at night. Ibuprofen 3-4 pills (600-800mg) every 6-8 hours as needed for pain. Warm baths may help discomfort. Use the Preparation H cream with lidocaine every day and "TUCKS" pads every time you go to the bathroom to help also with swelling. Return to the ER for re-evaluation if you have worsening pain, bleeding or fever or any other emergent, concerning symptoms. Follow up with a primary care physician for further management. I have given you contact information for the [facility]. Scripts Hydrocortisone Acetate (Anusol-Hc) 25 Mg Supp.rect 25 MG RC BID for 7 Days, #14 SUPP.RECT Prov: BEENA YADAV MD 02/02/22 BEENA YADAV MD Feb 02, 2022 03:22
[2022-02-02] MEDS ORDERED: HYDROCORTISONE 25 MG SUPPOSITORY (ANUSOL HC) PR ONE (03:30)
[2022-02-02] MEDS ORDERED: HYDR25SU28 RC (03:36)
== END 2022-02-02 03:45 | disposition home or self-care (01) ==
LOC: EDUNIT# 03:08 → ER 03:10
DX: K64.4 Residual hemorrhoidal skin tags (principal); Z28.310 Unvaccinated for COVID-19
CPT/HCPCS: 99281

== ENCOUNTER 2022-02-18 19:52 | Emergency (ER) | payer SELFPAY ==
[~2022-02-18] VITALS: Ht 170.8 cm; Wt 61.2 kg
[~2022-02-18 19:52] MED LIST changes: +HYDR25SU28 RC
[2022-02-18] MEDS ORDERED: NS IV 1000 ML 1,000 ML IV STA (20:32)
[2022-02-18 20:45] LABS: BASOPHILS # (AUTO) 0.1 10^3/uL (0.0-0.1); BASOPHILS % (AUTO) 1 % (0-10); EOSINOPHILS # (AUTO) 0.2 10^3/uL (0.0-0.3); EOSINOPHILS % (AUTO) 3 % (0-10); HEMATOCRIT 45 % (40-54); HEMOGLOBIN 15.4 g/dL (13.3-17.7); LYMPHOCYTES # (AUTO) 2.5 10^3/uL (1.0-4.0); LYMPHOCYTES % (AUTO) 37 % (12-44); MEAN CORPUSCULAR HEMOGLOBIN 33 pg (25-34); MEAN CORPUSCULAR HGB CONC 34 g/dL (32-36); MEAN CORPUSCULAR VOLUME 98 fL (80-99); MEAN PLATELET VOLUME 8.5 fL (9.0-12.2); MONOCYTES # (AUTO) 0.6 10^3/uL (0.0-1.0); MONOCYTES % (AUTO) 9 % (0-12); NEUTROPHILS # (AUTO) 3.3 10^3/uL (1.8-7.8); NEUTROPHILS % (AUTO) 50 % (42-75); PLATELET COUNT 305 10^3/uL (130-400); WHITE BLOOD COUNT 6.7 10^3/uL (4.3-11.0)
[2022-02-18 20:49] LABS: ALBUMIN 4.1 GM/DL (3.2-4.5)
[2022-02-18 20:50] LABS: POTASSIUM 3.9 MMOL/L (3.6-5.0)
[2022-02-18 20:51] LABS: CALCIUM 8.6 MG/DL (8.5-10.1)
[2022-02-18 20:52] LABS: TOTAL PROTEIN 6.5 GM/DL (6.4-8.2)
[2022-02-18 20:54] LABS: BILIRUBIN,TOTAL 0.4 MG/DL (0.1-1.0)
[2022-02-18 20:56] LABS: CREATININE SERUM 1.17 MG/DL (0.60-1.30)
--- NOTE | 2022-02-18 20:56 | ED Abdominal Pain ---
General Chief Complaint: Abdominal/GI Problems Stated Complaint: DIARRHEA/ABD PAIN Nursing Triage Note: PT AMBULATE TO ROOM 04 WITH C/O DIARRHEA X7 DAYS AND NAUSEA/ABD PAIN X2 DAYS. PT STATES HE HAS NOT TAKEN ANYTHING FOR THE DIARRHEA OR THE PAIN. PT STATES HE HAS NOT SEEN HIS PCP FOR THIS C/O. Source of Information: Patient Exam Limitations: No Limitations History of Present Illness Date Seen by Provider: Feb 18, 2022 Time Seen by Provider: 20:52 Initial Comments This is a healthy 36-year-old male that presents to the emergency room for evaluation of abdominal pain, nausea, vomiting and diarrhea. He states for the last week he has had at least 3 episodes of diarrhea a day and that over the last couple days he has had increased nausea and abdominal pain. He reports that he has a history of an ulcer and this feels somewhat similar, although at that time he did not have any nausea or vomiting or diarrhea. He denies bloody stools, fever, chills, chest pain Timing/Duration: 1 Week Severity/Quality: Moderate, Cramping Location: LUQ, RLQ Radiation: No Radiation Allergies and Home Medications Allergies Coded Allergies: No Known Drug Allergies (Unverified , 12/30/13) Patient Home Medication List Home Medication List Reviewed: Yes Hydrocortisone Acetate (Anusol-Hc) 25 Mg Supp.rect, 25 MG RC BID Prescribed by: BEENA YADAV on 02/02/22 0336 Review of Systems Review of Systems Constitutional: malaise Respiratory: No Symptoms Reported Cardiovascular: No Symptoms Reported Gastrointestinal: Diarrhea, Nausea, Vomiting Genitourinary: No Symptoms Reported Musculoskeletal: no symptoms reported Skin: no symptoms reported Past Qfasanh-Suijnd-Eomlfj Hx Patient Social History Tobacco Use?: Yes Tobacco type used: Cigarettes Smoking Status: Heavy Tobacco Smoker Smokeless Tobacco Frequency: Never a User Use of E-Cig and/or Vaping dev: No Substance use?: Yes Substance type: Marijuana, Other Additional substance use comme: COCAINE Substance frequency: Daily Alcohol Use?: Yes Alcohol Frequency: Couple times a week Pt feels they are or have been: No Immunizations Up To Date Tetanus Booster (TDap): Unknown First/Initial COVID19 Vaccinat: unvaccinated Second COVID19 Vaccination Durga: unvaccinated Third COVID19 Vaccination Date: unvaccinated Seasonal Allergies Seasonal Allergies: No Past Medical History Surgery/Hospitalization HX: Ulcer removal 2019 Dental surgery as a child. BIPOLAR, SCHIZOPHRENIC Surgeries: Yes Abdominal Respiratory: No Cardiac: No Neurological: No Reproductive Disorders: No Sexually Transmitted Disease: No HIV/AIDS: No Genitourinary: No Gastrointestinal: No Musculoskeletal: No Endocrine: No HEENT: No Cancer: No Psychosocial: Yes Bipolar, Schizophrenia Integumentary: No Blood Disorders: No Adverse Reaction/Blood Tranf: No Physical Exam Vital Signs Vital Signs - First Documented 02/18/22 20:03 Temp 36.7 Pulse 81 Resp 17 B/P (MAP) 116/75 (89) O2 Delivery Room Air Capillary Refill : Less Than 3 Seconds Height/Weight/BMI Height: 5'6" Weight: 145lbs. oz. 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, no motor/sensory deficits, oriented x 3 Progress/Results/Core Measures Results/Orders Lab Results Laboratory Tests Test 02/18/22 20:21 Range/Units White Blood Count 6.7 4.3-11.0 10^3/uL Red Blood Count 4.62 4.30-5.52 10^6/uL Hemoglobin 15.4 13.3-17.7 g/dL Hematocrit 45 40-54 % Mean Corpuscular Volume 98 80-99 fL Mean Corpuscular Hemoglobin 33 25-34 pg Mean Corpuscular Hemoglobin Concent 34 32-36 g/dL Red Cell Distribution Width 13.2 10.0-14.5 % Platelet Count 305 130-400 10^3/uL Mean Platelet Volume 8.5 L 9.0-12.2 fL Immature Granulocyte % (Auto) 0 % Neutrophils (%) (Auto) 50 42-75 % Lymphocytes (%) (Auto) 37 12-44 % Monocytes (%) (Auto) 9 0-12 % Eosinophils (%) (Auto) 3 0-10 % Basophils (%) (Auto) 1 0-10 % Neutrophils # (Auto) 3.3 1.8-7.8 10^3/uL Lymphocytes # (Auto) 2.5 1.0-4.0 10^3/uL Monocytes # (Auto) 0.6 0.0-1.0 10^3/uL Eosinophils # (Auto) 0.2 0.0-0.3 10^3/uL Basophils # (Auto) 0.1 0.0-0.1 10^3/uL Immature Granulocyte # (Auto) 0.0 0.0-0.1 10^3/uL Sodium Level 143 135-145 MMOL/L Potassium Level 3.9 3.6-5.0 MMOL/L Chloride Level 107 98-107 MMOL/L Carbon Dioxide Level 24 21-32 MMOL/L Anion Gap 12 5-14 MMOL/L Blood Urea Nitrogen 12 7-18 MG/DL Creatinine 1.17 0.60-1.30 MG/DL Estimat Glomerular Filtration Rate 82 BUN/Creatinine Ratio 10 Glucose Level 90 70-105 MG/DL Calcium Level 8.6 8.5-10.1 MG/DL Corrected Calcium 8.5 8.5-10.1 MG/DL Total Bilirubin 0.4 0.1-1.0 MG/DL Aspartate Amino Transf (AST/SGOT) 14 5-34 U/L Alanine Aminotransferase (ALT/SGPT) 16 0-55 U/L Alkaline Phosphatase 62 40-136 U/L Total Protein 6.5 6.4-8.2 GM/DL Albumin 4.1 3.2-4.5 GM/DL Lipase 14 8-78 U/L My Orders Orders - ELIAS FIGUEROA Ct Abdomen/Pelvis W (02/18/22 20:32) Ed Iv/Invasive Line Start (02/18/22 20:32) Cbc With Automated Diff (02/18/22 20:32) Comprehensive Metabolic Panel (02/18/22 20:32) Lipase (02/18/22 20:32) Ns Iv 1000 Ml (Sodium Chloride 0.9%) (02/18/22 20:32) Iohexol Injection (Omnipaque 350 Mg/Ml 1 (02/18/22 21:00) Ns (Ivpb) (Sodium Chloride 0.9% Ivpb Bag (02/18/22 21:00) Medications Given in ED Current Medications Medications Dose Ordered Sig/Kolby Route Start Time Stop Time Status Last Admin Dose Admin Iohexol 100 ml ONCE ONCE IV 02/18/22 21:00 02/18/22 21:01 DC 02/18/22 21:01 80 ML Sodium Chloride 100 ml ONCE ONCE IV 02/18/22 21:00 02/18/22 21:01 DC 02/18/22 21:01 80 ML Vital Signs/I&O 02/18/22 20:03 Temp 36.7 Pulse 81 Resp 17 B/P (MAP) 116/75 (89) O2 Delivery Room Air Blood Pressure Mean: 89 Departure Communication (Admissions) Patient is afebrile, nontoxic and in no distress. His lab work is reassuring and the CT of his abdomen pelvis does not show any evidence of acute perforation, obstruction or other emergent condition. Impression Primary Impression: Acute gastroenteritis Disposition: HOME, SELF-CARE Condition: Stable Departure-Patient Inst. Decision time for Depature: 21:24 Referrals: NO,LOCAL PHYSICIAN (PCP/Family) Primary Care Physician Patient Instructions: Viral Gastroenteritis Scripts Ondansetron (Ondansetron Odt) 4 Mg Tab.rapdis 4 MG PO TID for Nausea, #14 TAB Prov: ELIAS FIGUEROA 02/18/22 ELIAS FIGUEROA Feb 18, 2022 20:56
[2022-02-18] MEDS ORDERED: NS 100 ML (IVPB) BAG IV ONE (21:00)
[2022-02-18] MEDS ORDERED: IOHEXOL 350 MG/ML 100 ML (OMNIPAQUE 350) VIAL IV ONE (21:00)
--- NOTE | 2022-02-18 21:15 | Diagnostic Imaging Report ---
PROCEDURE: CT abdomen and pelvis with contrast. TECHNIQUE: Multiple contiguous axial images were obtained through the abdomen and pelvis after administration of intravenous contrast. Auto Exposure Controls were utilized during the CT exam to meet ALARA standards for radiation dose reduction. All CT scans use one or more of the following dose optimizing techniques: automated exposure control, MA and/or KvP adjustment based on patient size and exam type or iterative reconstruction. INDICATION: Abdominal pain and diarrhea. COMPARISON: No relevant comparison available. FINDINGS: The lung bases are clear without pneumonia or an effusion. There is no pericardial collection. The liver demonstrates no evidence of a focal intrahepatic abnormality. The gallbladder is nondistended. There is no biliary dilatation or radiodense gallstone. Portal veins and hepatic veins are patent. The pancreas is unremarkable. The spleen is normal in size. There is no adrenal mass. The kidneys enhance normally and are nonobstructed. The stomach is fluid-filled without gastric wall thickening. There is no finding of small bowel dilation or small bowel obstruction. There does appear to be some slight small bowel mucosal hyperenhancement. Small bowel loops are fluid-filled. There is moderate stool throughout the colon without identifiable focal pericolonic fat stranding or mucosal hyperenhancement. The appendix appears to be normal. There is no finding of free fluid, abscess or free air. No pathologic adenopathy is evident. The aorta is unremarkable. There is no acute osseous abnormality. IMPRESSION: 1. Diffuse fluid-filled loops of nondilated small bowel as well as fluid filled stomach. There appears to be some mild small bowel mucosal hyperenhancement. The features suggest an enteritis. There is no finding of appendicitis. There is moderate stool evident within the colon. 2. No free air, free fluid, abscess or adenopathy. Dictated by: Dictated on workstation # [id number]
[2022-02-18] MEDS ORDERED: ONDA4TAB11 PO (21:25)
[2022-02-18 21:37] VITALS: BP 107/72
== END 2022-02-18 21:34 | disposition home or self-care (01) ==
LOC: EDUNIT# 19:52 → ER 19:53
DX: K52.9 Noninfective gastroenteritis and colitis, unspecified (principal); F17.210 Nicotine dependence, cigarettes, uncomplicated; Z28.310 Unvaccinated for COVID-19
CPT/HCPCS: 36415; 74177; 80053; 83690; 85025

== ENCOUNTER 2022-09-21 04:48 | Emergency (ER) | payer SELFPAY ==
[~2022-09-21] VITALS: Ht 167.7 cm; Wt 65.8 kg
[~2022-09-21 04:48] MED LIST changes: +ALBU8.5H6 IH; +ONDA4TAB11 PO; -RT-ALBUINH IH
[2022-09-21 04:54] VITALS: BP 136/90
--- NOTE | 2022-09-21 05:27 | ED Upper Extremity ---
General Chief Complaint: Upper Extremity Stated Complaint: L WRIST PAIN Nursing Triage Note: PT AMB TO RM 7 W C/O LEFT WRIST PAIN SX 09/20/22, PT REPORTS POSS INJURY WHILE AT WORK ON 09/19/22. PT A&OX4. Source: patient Exam Limitations: no limitations History of Present Illness Date Seen by Provider: Sep 21, 2022 Time Seen by Provider: 05:17 Initial Comments Patient is a 37-year-old male who presents to the emergency room with a chief co mplaint of left wrist pain. He states he noticed the pain after work 24 hours ago. He states work put him in a [place]an wrist wrap and gave him some Tylenol. He states he cannot remember any discrete injury at work but noticed it after work. He states the distal forearm on the radial aspect of his wrist is tender and a little swollen. He complains of pain with range of motion specifically extension and rotation laterally. No numbness to the fingers no loss of function. He is right-hand dominant. History of ulcers not currently on any acid reducers. Is a smoker both marijuana and tobacco. Onset: yesterday Severity: moderate Pain/Injury Location: left wrist Method of Injury: unknown Modifying Factors: Improves With Immobilization Allergies and Home Medications Allergies Coded Allergies: No Known Drug Allergies (Unverified , 12/30/13) Patient Home Medication List Home Medication List Reviewed: Yes Hydrocortisone Acetate (Anusol-Hc) 25 Mg Supp.rect, 25 MG RC BID Prescribed by: BEENA YADAV on 02/02/22 0336 Ondansetron (Ondansetron Odt) 4 Mg Tab.rapdis, 4 MG PO TID Prescribed by: Torey Dangelo on 02/18/222124 Review of Systems Constitutional: see HPI Musculoskeletal: joint pain (left wrist) Past Muqdopz-Kfykni-Wpoqlp Hx Patient Social History Tobacco Use?: Yes Tobacco type used: Cigarettes Smoking Status: Current Everyday Smoker Use of E-Cig and/or Vaping dev: No Substance use?: Yes Substance type: Marijuana Alcohol Use?: Yes Alcohol Frequency: Once in a while Immunizations Up To Date Tetanus Booster (TDap): Unknown Influenza Vaccine Up-to-Date: No; Not Current First/Initial COVID19 Vaccinat: unvaccinated Second COVID19 Vaccination Durga: unvaccinated Third COVID19 Vaccination Date: unvaccinated Seasonal Allergies Seasonal Allergies: No Past Medical History Surgery/Hospitalization HX: Ulcer removal 2019 Dental surgery as a child. BIPOLAR, SCHIZOPHRENIC Surgeries: Yes Abdominal Respiratory: No Cardiac: No Neurological: No Reproductive Disorders: No Sexually Transmitted Disease: No HIV/AIDS: No Genitourinary: No Gastrointestinal: No Musculoskeletal: No Endocrine: No HEENT: No Cancer: No Psychosocial: Yes Bipolar, Schizophrenia Integumentary: No Blood Disorders: No Adverse Reaction/Blood Tranf: No Physical Exam Vital Signs Vital Signs - First Documented 09/21/22 04:54 Temp 36.6 Pulse 90 Resp 18 B/P (MAP) 136/90 (105) Pulse Ox 97 O2 Delivery Room Air Capillary Refill : Less Than 3 Seconds Height, Weight, BMI Height: 5'6" Weight: 145lbs. oz. 65.577496fl; 23.00 BMI Method:Stated General Appearance: WD/WN, no apparent distress Respiratory: no respiratory distress, no accessory muscle use, other (2+ left radial pulse) Shoulder: normal inspection, non-tender, no evidence of injury, normal ROM Elbow/Forearm: normal inspection, non-tender, no evidence of injury, normal ROM, Left Wrist: Yes limited ROM (with extension and radial rotation), Yes pain (left distal radius), Yes soft tissue tenderness (snuff box (no trauma)) Hand: normal inspection, non-tender, no evidence of injury, normal ROM, Left Neurologic/Tendon: normal sensation, normal motor functions, normal tendon functions Neurologic/Psychiatric: alert, normal mood/affect, oriented x 3 Skin: normal color, warm/dry Progress/Results/Core Measures Results/Orders Vital Signs/I&O 09/21/22 04:54 Temp 36.6 Pulse 90 Resp 18 B/P (MAP) 136/90 (105) Pulse Ox 97 O2 Delivery Room Air Blood Pressure Mean: 105 Departure Impression Primary Impression: Sprain of left wrist Qualified Codes: S63.502A - Unspecified sprain of left wrist, initial encounter Disposition: HOME, SELF-CARE Condition: Stable Departure-Patient Inst. Decision time for Depature: 05:25 Referrals: [facility],LOCAL PHYSICIAN (PCP) Primary Care Physician Patient Instructions: Wrist Sprain ED Add. Discharge Instructions: You can wear the Camacho wrap to your left wrist as needed for stability especially while you are working. Ice packs off-and-on 20 minutes at a time 3-4 times daily will help with any swelling or discomfort. Aleve, generic is naproxen, 2 pills twice daily with food. 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 Stopping smoking will also decrease your risk of ulcers. Return to the emergency department for any new, concerning or emergent complaints. Work/School Note: Work Release Form Date Seen in the Emergency Department: Sep 21, 2022 Return to Work: Sep 21, 2022 BEENA YADAV MD Sep 21, 2022 05:27
[2022-09-21] MEDS ORDERED: PANTOPRAZOLE 40 MG (PROTONIX) TAB PO ONE (05:30)
[2022-09-21] MEDS ORDERED: NAPROXEN 250 MG (NAPROSYN) TABLET PO ONE (05:30)
== END 2022-09-21 05:33 | disposition home or self-care (01) ==
LOC: EDUNIT# 04:48 → ER 04:52
DX: S63.502A Unspecified sprain of left wrist, initial encounter (principal); F17.210 Nicotine dependence, cigarettes, uncomplicated; Z28.310 Unvaccinated for COVID-19; X58.XXXA Exposure to other specified factors, initial encounter; Y92.59 Other trade areas as the place of occurrence of the external cause; Y99.0 Civilian activity done for income or pay
CPT/HCPCS: 99283

== ENCOUNTER 2022-09-28 12:37 | Emergency (ER) | payer SELFPAY ==
[~2022-09-28] VITALS: Ht 167 cm; Wt 57.0 kg
--- NOTE | 2022-09-28 13:24 | ED Upper Extremity ---
General Chief Complaint: Upper Extremity Stated Complaint: LT WRIST INJ | RECHECK FROM 09/20/22 Nursing Triage Note: PT AMB TO TRIAGE. PT CO OF R WRIST PAIN STATES FEELS BONES RUBBING TOGETHER. RATES PAIN 01/28. WAS SEEN IN ED COUPLE DAYS AGO. DENIES INJURY TO WRIST Source: patient Exam Limitations: no limitations (CHRISTINA RUTHERFORD) History of Present Illness Date Seen by Provider: Sep 28, 2022 Time Seen by Provider: 13:22 Initial Comments Patient is a 37-year-old male who presents ED with left wrist pain. Patient states he was seen here on 21 September. He states he was diagnosed with a wrist sprain. Has been having continued pain specially with flexion of the left wrist. And continue having swelling to the left dorsum wrist. Patient did not have an x-ray. He is requesting x-ray at this time. 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 Patient states he has been using his wrist prior to the injury grabbing chicken and cutting chicken. No history of previous fracture. Has been taking Aleve with Prilosec. Denies distal numbness and tingling, nausea, vomit, diarrhea (CHRISTINA RUTHERFORD) Allergies and Home Medications Allergies Coded Allergies: No Known Drug Allergies (Unverified , 12/30/13) Patient Home Medication List Home Medication List Reviewed: Yes (CHRISTINA RUTHERFORD) Hydrocortisone Acetate (Anusol-Hc) 25 Mg Supp.rect, 25 MG RC BID Prescribed by: BEENA YADAV on 02/02/22 0336 Ondansetron (Ondansetron Odt) 4 Mg Tab.rapdis, 4 MG PO TID Prescribed by: Torey Dangelo on 02/18/222124 Review of Systems Constitutional: No chills, No diaphoresis, No malaise, No weakness EENTM: No blurred vision, No double vision Respiratory: No cough, No dyspnea on exertion Cardiovascular: No chest pain Gastrointestinal: No abdominal pain, No diarrhea, No nausea, No vomiting Genitourinary: No decreased output, No discharge Musculoskeletal: No back pain; joint pain, joint swelling Skin: No change in color, No change in hair/nails (CHRISTINA RUTHERFORD) All Other Systems Reviewed Negative Unless Noted: Yes (CHRISTINA RUTHERFORD) Past Vgzmffo-Ajfhsf-Lnqmnv Hx Patient Social History Tobacco Use?: Yes Tobacco type used: Cigarettes Smoking Status: Current Everyday Smoker Substance use?: Yes Substance type: Marijuana Substance frequency: Daily Alcohol Use?: Yes Alcohol type: Beer Alcohol Frequency: Once in a while Pt feels they are or have been: No (CHRISTINA RUTHERFORD) Immunizations Up To Date Tetanus Booster (TDap): Unknown Influenza Vaccine Up-to-Date: No; Not Current First/Initial COVID19 Vaccinat: unvaccinated Second COVID19 Vaccination Durga: unvaccinated Third COVID19 Vaccination Date: unvaccinated (CHRISTINA RUTHERFORD) Seasonal Allergies Seasonal Allergies: No (CHRISTINA RUTHERFORD) Past Medical History Surgery/Hospitalization HX: Ulcer removal 2019 Dental surgery as a child. BIPOLAR, SCHIZOPHRENIC Surgeries: Yes Abdominal Respiratory: No Cardiac: No Neurological: No Reproductive Disorders: No Sexually Transmitted Disease: No HIV/AIDS: No Genitourinary: No Gastrointestinal: No Musculoskeletal: No Endocrine: No HEENT: No Cancer: No Psychosocial: Yes Bipolar, Schizophrenia Integumentary: No Blood Disorders: No Adverse Reaction/Blood Tranf: No (CHRISTINA RUTHERFORD) Physical Exam Vital Signs Vital Signs - First Documented 09/28/22 12:50 Temp 36.4 Pulse 115 Resp 16 B/P (MAP) 107/70 (82) Pulse Ox 96 (MAKSIM PAUL MD) Vital Signs Capillary Refill : Less Than 3 Seconds (CHRISTINA RUTHERFORD) Height, Weight, BMI Height: 5'6" Weight: 145lbs. oz. 65.341005kt; 20.00 BMI Method:Stated General Appearance: WD/WN, no apparent distress HEENT: PERRL/EOMI, normal ENT inspection, TMs normal, pharynx normal Neck: non-tender, full range of motion, supple Cardiovascular: regular rate, rhythm, no edema, no gallop, no JVD Respiratory: chest non-tender, lungs clear, normal breath sounds, no respiratory distress, no accessory muscle use Gastrointestinal: normal bowel sounds, non tender, soft, no organomegaly Back: normal inspection, no CVA tenderness Shoulder: normal inspection, non-tender, no evidence of injury Elbow/Forearm: normal inspection, non-tender, no evidence of injury Wrist: Yes normal ROM (Left wrist), Yes soft tissue tenderness (Left dorsum distal radius. 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 Concerning for wrist pain. Reviewed previous ER visits. Discussed Velcro splint for comfort. Ice and anti-inflammatories. Orthopedic follow-up in 7 to 10 days for reevaluation. Return precaution were discussed with patient. (CHRISTINA RUTHERFORD) Impression Primary Impression: Sprain of left wrist Disposition: 01 HOME, SELF-CARE Condition: Stable Departure-Patient Inst. Decision time for Depature: 14:23 (CHRISTINA RUTHERFORD) Referrals: [facility] [place] (PCP/Family) Primary Care Physician TIM STANTON MD Patient Instructions: Wrist Sprain ED Add. Discharge Instructions: Velcro splint for comfort. Ice and anti-inflammatories. If continued pain recommend outpatient orthopedic follow-up All discharge instructions reviewed with patient and/or family. Voiced understanding. ATTENDING PHYSICIAN NOTE: I was physically present as attending physician in the emergency department during the care of this patient, but I was not directly involved in the decision making or delivery of care for this patient. (MAKSIM PAUL MD) CHRISTINA RUTHERFORD Sep 28, 2022 13:24 MAKSIM PAUL MD Sep 29, 2022 09:22
--- NOTE | 2022-09-28 14:10 | Diagnostic Imaging Report ---
INDICATION: Distal radial and ulnar pain. AP, oblique, lateral views of the left wrist are obtained. FINDINGS: No fracture or acute bony abnormality seen. Joint spaces are unremarkable. IMPRESSION: Negative left wrist. Dictated by: Dictated on workstation # [id number]
[2022-09-28 14:32] VITALS: BP 107/70
== END 2022-09-28 14:31 | disposition home or self-care (01) ==
LOC: EDUNIT# 12:37 → ER 12:40
DX: S63.502A Unspecified sprain of left wrist, initial encounter (principal); F17.210 Nicotine dependence, cigarettes, uncomplicated; X58.XXXA Exposure to other specified factors, initial encounter
CPT/HCPCS: 73110